=== PATIENT | female | born 1960 | race Caucasian/White ===

== ENCOUNTER 2016-11-13 21:17 | Inpatient (IN) | payer MEDICAID, OTHER ==
[2016-11-13] MEDS ORDERED: ONDANSETRON 4 MG/2 ML VIAL IVP ONE ×2 (21:38→21:49)
--- NOTE | 2016-11-13 21:42 | EDPHY ---
H & P Stated Complaint: ABD PAIN HX OF PANCRETITIS, JUST DROVE FROM [place] HPI/ROS: HPI CHIEF COMPLAINT: Abdominal pain, nausea, vomiting HISTORY OF PRESENT ILLNESS: This patient is a very pleasant 56-year-old female , she is visiting her parents and [place] and she is from [place], she states around 5:00 p.m. she developed acute onset of epigastric abdominal pain burning in sensation, with associated nausea vomiting. She denies chest pain. She has had multiple episodes of nonbilious nonbloody vomiting, diarrhea, she is tells me this feels exactly like her previous episode of pancreatitis which was medication induced. She denies pleuritic pain. She does additionally tells me that she feels short of breath. She has asthma and is at altitude and would like also a breathing treatment. She denies fever, pleuritic pain. Past Medical History: Pancreatitis, chronic pain, chronic back pain, chronic knee pain, asthma Past Surgical History: Cholecystectomy Social History: Denies daily use of drugs alcohol tobacco products resides in [place], visiting her parents here in [facility] Family History: Noncontributory ROS REVIEW OF SYSTEMS: A comprehensive 10 point review of systems is otherwise negative aside from elements mentioned in the history of present illness. Exam Constitutional appears well nontoxic triage nursing summary reviewed, vital signs reviewed, awake/alert. Eyes normal conjunctivae and sclera, EOMI, PERRLA. HENT normal inspection, atraumatic, moist mucus membranes, no epistaxis, neck supple/ no meningismus, no raccoon eyes. Respiratory clear to auscultation bilaterally, normal breath sounds, no respiratory distress, no wheezing. Cardiovascular rate normal, regular rhythm, no murmur, no edema, distal pulses normal. Gastrointestinal soft, tender palpation epigastric region , no rebound, no guarding, normal bowel sounds, no distension, no pulsatile mass. Genitourinary no CVA tenderness. Musculoskeletal no midline vertebral tenderness, full range of motion, no calf swelling, no tenderness of extremities, no meningismus, good pulses, neurovascularly intact. Skin pink, warm, & dry, no rash, skin atraumatic. Neurologic awake, alert and oriented x 3, AAOx3, moves all 4 extremities equally, motor intact, sensory intact, CN II-XII intact, normal cerebellar, normal vision, normal speech. Psychiatric normal mood/affect. Heme/Lymph/Immune no lymphadenopathy. Differential diagnosis includes but is not limited to and in no particular order : Bowel obstruction, appendicitis, gallbladder disease, diverticulitis, colitis , enteritis, perforated viscus, gastritis, GERD, esophagitis, urinary tract infection, pyelonephritis, kidney stones Medical Decision Making: IV establishment, IV fluid bolus normal saline 1 L, IV Zofran for nausea medicine IV Dilaudid for pain control check abdominal blood work including lipase, CT abdomen pelvis with IV contrast to help delineate her acute abdominal pain, check EKG troponin. DuoNeb breathing treatment. Re-evaluation: EKG interpretation by me on record in [email or web address] system. Impression time of EKG 2217, this is sinus rhythm rate of 91 there is a nonspecific intraventricular conduction delay. Otherwise unremarkable EKG I do not appreciate acute ischemia. No ST elevation. There is no old EKG to compare this to. 2246: CT scan of the abdominal with IV contrast. The results of the study are negative for acute inflammatory disease. The study was read by Dr. Barakat. I viewed the images myself on the PACS system. 1214AM: Re-evaluation at this time patient feels much better. She is not vomiting. Abdomen re-examination at this time soft nontender no guarding or peritoneal signs. Blood work has been reviewed CT reviewed. She is receiving 1 more L fluid here. She is requesting be discharged. She does have strict return precautions she understands return if she has worsening abdominal pain fever vomiting. Explained I will have a great explanation for abdominal pain could be gastritis versus ulcer. Certainly no evidence of pancreatitis. EKG interpretation by me on record in [email or web address] system. Impression time of EKG 0011: This is sinus rhythm rate of 98, nonspecific intraventricular conduction delay present again. Otherwise no acute ischemic change appreciated. No ST elevation. No significant ST depression. No significant T- wave abnormality. No prolonged intervals. Similar to previous EKG. 1242AM: Patient's repeat troponin is positive at 0.641. On re-evaluation at this time she does not have chest pain or shortness of breath she does have some mild epigastric pain is reproducible on exam. I will repeat her EKG and obtain a chest x-ray. She will be given full-dose aspirin and nitroglycerin to see if this improves her epigastric discomfort. There is no acute ischemia on her EKG but will repeat. She will need to be admitted the hospital for positive troponin. 0115AM: EKG interpretation by me on record in [email or web address] system. Impression time of EKG 12:49 a.m., sinus rhythm rate of 93 again there is a nonspecific intraventricular conduction delay however I do not appreciate acute ischemia on this EKG. ED x-ray chest one view: Slightly rotated otherwise unremarkable chest x-ray. Image interpreted by myself. 0116: Full-dose aspirin given. Nitroglycerin given. Did not improve epigastric discomfort. Repeat dose of Dilaudid given. She is resting comfortably at this time. No chest pain or shortness of breath. 0123AM: I spoke with Dr. tolliver who agrees to admit the patient. Patient be admitted to PCU for court recording monitor given her positive troponin. Again she has no chest pain or significant shortness of breath. She is resting comfortably. Will cycle enzymes. Plus or minus stress test. This time she is hemodynamically stable no acute distress safe for admission to PCU. 0249AM: Patient resting comfortably. Repeat troponin has doubled 1.2. Indicating most likely non STEMI. She will be started on anticoagulation. Morphine for pain control. She is already receive full-dose aspirin. Nitroglycerin did not help with her pain gave her headache. She is pain-free at this time. Resting comfortably. Hemodynamically stable she will be transferred from the ER to PCU. Dr. Jaren thomas. Source: Patient - Personal History Current Tetanus/Diphtheria Vaccine: Yes Current Tetanus Diphtheria and Acellular Pertussis (TDAP): Yes - Medical/Surgical History Hx Asthma: Yes Hx Chronic Respiratory Disease: No Hx Diabetes: No Hx Cardiac Disease: No Hx Renal Disease: No Hx Cirrhosis: No Hx Alcoholism: No Hx HIV/AIDS: No Hx Splenectomy or Spleen Trauma: No Other PMH: PANCRETITIS, DEPRESSION, FIBROMYALSIA, ASTHMA, MIGRAINES - Social History Smoking Status: Never smoked Constitutional: Initial Vital Signs Temperature (C) 36.9 C 11/13/16 21:17 Heart Rate 114 H 11/13/16 21:17 Respiratory Rate 20 11/13/16 21:17 Blood Pressure 195/136 H 11/13/16 21:17 O2 Sat (%) 98 11/13/16 21:17 O2 Delivery Mode Nasal Cannula O2 (L/minute) 2 Allergies/Adverse Reactions: Penicillins Allergy (Verified 11/14/16 09:53) Rash/Throat swelling Home Medications: Medication Instructions Recorded buPROPion SR [Wellbutrin 150mg SR 150 mg PO BID 11/13/16 (*)] Albuterol [Proventil Inhaler HFA 1 - 2 puffs IH DAILY PRN 11/14/16 (*)] Citalopram Hydrobromide [Celexa] 40 mg PO DAILY 11/14/16 Esomeprazole Mag Trihydrate 40 mg PO DAILY 11/14/16 [Nexium] Rotigotine [Neupro] 1 each TD DAILY18 11/14/16 Sumatriptan Succinate 6 mg SQ DAILY 11/14/16 rOPINIRole HCL [Requip 2mg (*)] 2 mg PO BID@,11/14/16 traMADol [Ultram 50 mg (*)] 50 mg PO Q8HRS PRN 11/14/16 valACYclovir [Valtrex (*)] 500 mg PO HS 11/14/16 Medical Decision Making - Data Points Laboratory Results: Laboratory Results 11/13/16 21:34 11/13/16 21:34 Medications Given: Discontinued Medications Al Hydroxide/Mg Hydroxide (Maalox Susp) 30 ml PO ONCE ONE Stop: 11/14/16 15:19 Last Admin: 11/14/16 16:15 Dose: 30 ml Albuterol/Ipratropium (Duoneb) 3 ml IH EDNOW ONE Stop: 11/13/16 21:51 Last Admin: 11/13/16 21:59 Dose: 3 ml Aspirin (Aspirin) 324 mg PO EDNOW ONE Stop: 11/14/16 00:42 Last Admin: 11/14/16 00:52 Dose: 324 mg Aspirin Buffered (Aspirin Ec) 325 mg PO ONCALL ONE Stop: 11/14/16 12:54 Last Admin: 11/14/16 13:00 Dose: Not Given Clopidogrel Bisulfate (Plavix) 300 mg PO ONCE ONE Stop: 11/14/16 03:00 Last Admin: 11/14/16 04:08 Dose: 300 mg Diazepam (Valium) 5 mg PO ONCALL ONE Stop: 11/14/16 12:54 Last Admin: 11/14/16 13:00 Dose: Not Given Diphenhydramine HCl (Benadryl) 25 mg PO ONCALL ONE Stop: 11/14/16 12:54 Last Admin: 11/14/16 13:01 Dose: Not Given Enoxaparin Sodium (Lovenox) 70 mg SC ONCE ONE Stop: 11/14/16 03:01 Last Admin: 11/14/16 04:10 Dose: 70 mg Hydromorphone HCl (Dilaudid) 1 mg IVP EDNOW ONE Stop: 11/13/16 21:50 Last Admin: 11/13/16 21:58 Dose: 1 mg Hydromorphone HCl (Dilaudid) 0.5 mg IVP EDNOW ONE Stop: 11/14/16 00:00 Last Admin: 11/14/16 00:04 Dose: 0.5 mg Hydromorphone HCl (Dilaudid) 0.5 mg IVP EDNOW ONE Stop: 11/14/16 01:12 Last Admin: 11/14/16 01:15 Dose: 0.5 mg Hydromorphone HCl (Dilaudid) 0.2 - 1 mg IVP Q2 PRN PRN Reason: Pain, Severe Unable to Take PO Stop: 11/24/16 02:50 Last Admin: 11/16/16 03:59 Dose: 1 mg Hyoscyamine Sulfate (Levsin, Hyomax-Sl) 0.25 mg PO ONCE ONE Stop: 11/14/16 15:19 Last Admin: 11/14/16 16:15 Dose: 0.25 mg Sodium Chloride (Ns) 1,000 mls @ 0 mls/hr IV EDNOW ONE; Wide Open PRN Reason: Protocol Stop: 11/13/16 21:50 Last Admin: 11/13/16 21:56 Dose: 1,000 mls Sodium Chloride (Ns) 1,000 mls @ 0 mls/hr IV ONCE ONE PRN Reason: Wide Open Stop: 11/14/16 00:00 Last Admin: 11/14/16 00:03 Dose: 1,000 mls Potassium Chloride 40 meq/ (Sodium Chloride) 1,000 mls @ 100 mls/hr IV CONT POPEYE Stop: 05/13/17 02:59 Last Admin: 11/14/16 04:15 Dose: 1,000 mls Magnesium Sulfate/Dextrose (Magnesium Sulf 1 Gm (Premix)) 100 mls @ 100 mls/hr IV ONCE ONE Stop: 11/14/16 04:02 Last Admin: 11/14/16 04:10 Dose: 100 mls Pantoprazole Sodium 40 mg/ (Sodium Chloride) 100 mls @ 200 mls/hr IV BID [facility] Stop: 05/13/17 15:19 Last Admin: 11/14/16 16:22 Dose: 100 mls Pantoprazole Sodium 40 mg/ (Sodium Chloride) 100 mls @ 200 mls/hr IV BID [facility] Stop: 05/13/17 16:14 Last Admin: 11/16/16 08:15 Dose: 100 mls Lidocaine (Lidocaine 2% Viscous) 15 ml PO ONCE ONE Stop: 11/14/16 15:19 Last Admin: 11/14/16 16:15 Dose: 15 ml Metoprolol Tartrate (Lopressor) 12.5 mg PO ONCE ONE Stop: 11/14/16 03:00 Last Admin: 11/14/16 04:09 Dose: 12.5 mg Nitroglycerin (Nitrostat) 0.4 mg SL EDNOW ONE Stop: 11/14/16 00:42 Last Admin: 11/14/16 00:52 Dose: 0.4 mg Ondansetron HCl (Zofran) 4 mg IVP EDNOW ONE Stop: 11/13/16 21:39 Last Admin: 11/13/16 21:40 Dose: 4 mg Ondansetron HCl (Zofran) 4 mg IVP EDNOW ONE Stop: 11/13/16 21:50 Last Admin: 11/13/16 22:23 Dose: Not Given Oxycodone HCl (Oxycodone Ir) 5 mg PO Q4HRS PRN PRN Reason: Pain, Severe Able to Take PO Stop: 11/24/16 15:21 Last Admin: 11/16/16 08:22 Dose: 5 mg Pantoprazole Sodium (Protonix) 40 mg PO DAILY [facility] Stop: 05/13/17 10:29 Last Admin: 11/14/16 15:50 Dose: Not Given Ropinirole HCl (Requip) 2 mg PO EDNOW ONE Stop: 11/14/16 01:24 Last Admin: 11/14/16 01:37 Dose: 2 mg Departure - Departure Disposition: [facility] Inpatient Acute Clinical Impression: Elevated troponin Abdominal pain Qualifiers: Abdominal location: epigastric Qualified Code(s): R10.13 - Epigastric pain Condition: Good
[2016-11-13] MEDS ORDERED: HYDROmorphONE/DILAUDID 1 MG/ML SYR IVP ONE ×2 (21:49→23:59)
[2016-11-13] MEDS ORDERED: NS 1,000 ML IV ONE ×2 (21:49→23:59)
[2016-11-13] MEDS ORDERED: IPRATROPIUM/ALBUTEROL 3 ML DEYVIAL IH ONE (21:50)
[2016-11-13 21:56] LABS: % IMMATURE GRANULYOCYTES 0.5 % (0.0-1.1); ABSOLUTE IMMATURE GRANULOCYTES 0.08 10^3/uL (0.00-0.10); ADD DIFF? NO; ADD MORPH? NO; ADD SCAN? NO; ATYPICAL LYMPHOCYTE FLAG 0 (0-99); FRAGMENT RBC FLAG 0 (0-99); HEMATOCRIT 39.6 % (38.0-47.0); HEMOGLOBIN 12.9 g/dL (12.6-16.3); LEFT SHIFT FLG 0 (0-99); LIPEMIA HEMOLYSIS FLAG 80 (0-99); MEAN CELL HEMOGLOBIN 31.2 pg (27.9-34.1); MEAN CELL HEMOGLOBIN CONCENTR. 32.6 g/dL (32.4-36.7); MEAN CELL VOLUME 95.7 fL (81.5-99.8); MEAN PLATELET VOLUME 10.3 fL (8.7-11.7); PLATELET CLUMPS FLAG 0 (0-99); PLATELET COUNT 325 10^3/uL (150-400); RED BLOOD CELL COUNT 4.14 10^6/uL (4.18-5.33); RED CELL DISTRIBUTION WIDTH 13.2 % (11.5-15.2)
[2016-11-13] MEDS ORDERED: IOPAMIDOL (ISOVUE-300) 100 ML BTL ONE (22:00)
[2016-11-13 22:02] LABS: ALANINE AMINOTRANSFERASE 30 IU/L (9-52); ALBUMIN 4.7 g/dL (3.5-5.0); ALKALINE PHOSPHATASE 75 IU/L (38-126); ANION GAP 18 mEq/L (8-16); ASPARTATE AMINOTRANSFERASE 30 IU/L (14-46); BILIRUBIN,TOTAL 0.6 mg/dL (0.1-1.4); BILIRUBIN-CONJUGATED 0.3 mg/dL (0.0-0.5); BILIRUBIN-UNCONJUGATED 0.3 mg/dL (0.0-1.1); CALCIUM 10.6 mg/dL (8.5-10.4); CARBON DIOXIDE 18 mEq/l (22-31); CHLORIDE 108 mEq/L (97-110); CREATININE 1.1 mg/dL (0.6-1.0); GLOMERULAR FILTRATION RATE 52; GLUCOSE 183 mg/dL (70-100); POTASSIUM 3.4 mEq/L (3.5-5.2); SODIUM 144 mEq/L (134-144); TOTAL PROTEIN 7.7 g/dL (6.3-8.2)
[2016-11-13 22:05] LABS: INR 0.92 (0.83-1.16); PROTIME(PATIENT) 12.3 SEC (12.0-15.0)
[2016-11-13 22:06] LABS: APTT 23.2 SEC (23.0-38.0)
--- NOTE | 2016-11-13 22:19 | CPEKG ---
Heart Rate: 91 RR Interval: 659 P-R Interval: 160 QRSD Interval: 112 QT Interval: 436 QTC Interval: 537 P [place]: 66 QRS [place]: -29 T Wave [place]: 71 EKG Severity - ABNORMAL ECG - EKG Impression: SINUS RHYTHM EKG Impression: PROBABLE LEFT ATRIAL ABNORMALITY EKG Impression: NONSPECIFIC INTRAVENTRICULAR CONDUCTION DELAY Electronically Signed By: Bigg Verma 15-Nov-2016 14:30:33
[2016-11-13 22:31] LABS: TROPONIN I < 0.012 ng/mL (0-0.034)
--- NOTE | 2016-11-14 00:13 | CPEKG ---
Heart Rate: 98 RR Interval: 612 P-R Interval: 152 QRSD Interval: 114 QT Interval: 428 QTC Interval: 547 P [place]: 70 QRS [place]: -41 T Wave [place]: 58 EKG Severity - ABNORMAL ECG - EKG Impression: SINUS RHYTHM EKG Impression: PROBABLE LEFT ATRIAL ABNORMALITY EKG Impression: NONSPECIFIC IVCD WITH LAD Electronically Signed By: Dario Lazo 16-Nov-2016 15:01:12
[2016-11-14 00:20] LABS: COLOR PALE YELLOW; LEUKOCYTE ESTERASE,URINE NEGATIVE (NEGATIVE); NITRITE,URINE NEGATIVE (NEGATIVE)
[2016-11-14 00:34] LABS: TROPONIN I 0.641 ng/mL (0-0.034)
[2016-11-14] MEDS ORDERED: NITROGLYCERIN 0.4 MG BTL SL ONE (00:41)
[2016-11-14] MEDS ORDERED: ASPIRIN 81 MG CHEWABLE TAB PO ONE (00:41)
--- NOTE | 2016-11-14 00:52 | CPEKG ---
Heart Rate: 93 RR Interval: 645 P-R Interval: 168 QRSD Interval: 100 QT Interval: 436 QTC Interval: 543 P [place]: 56 QRS [place]: -34 T Wave [place]: 60 EKG Severity - ABNORMAL ECG - EKG Impression: SINUS RHYTHM EKG Impression: LEFT AXIS DEVIATION EKG Impression: PROLONGED QT INTERVAL Electronically Signed By: Dario Lazo 16-Nov-2016 15:00:49
[2016-11-14] MEDS ORDERED: HYDROmorphONE/DILAUDID 1 MG/ML SYR IVP ONE (01:11)
[2016-11-14] MEDS ORDERED: HYDROmorphONE/DILAUDID 1 MG/ML SYR ONE (01:13)
[2016-11-14] MEDS ORDERED: ONDANSETRON DISINTEGRATING 4 MG TAB PO PRN (02:51)
[2016-11-14] MEDS ORDERED: PROMETHAZINE HCL 25 MG/ML INJ IVP PRN (02:51)
[2016-11-14] MEDS ORDERED: PROMETHAZINE HCL 25 MG TAB PO PRN (02:51)
[2016-11-14] MEDS ORDERED: ACETAMINOPHEN 325 MG TAB PO PRN (02:51)
[2016-11-14] MEDS ORDERED: ONDANSETRON 4 MG/2 ML VIAL IVP PRN (02:51)
[2016-11-14] MEDS ORDERED: METOPROLOL TARTRATE 25 MG TAB PO ONE (02:59)
[2016-11-14] MEDS ORDERED: CLOPIDOGREL BISULFATE 75 MG TAB PO ONE (02:59)
[2016-11-14] MEDS ORDERED: ENOXAPARIN 80 MG/0.8 ML SYR SC ONE (03:00)
[2016-11-14] MEDS ORDERED: POTASSIUM Cl (KCl) 40 MEQ in NS 1,000 ML IV SCH (03:00)
[2016-11-14] MEDS ORDERED: MAGNESIUM SULF 1 GM/DEXTROSE 100 ML IV ONE (03:03)
--- NOTE | 2016-11-14 03:08 | PDGENHP ---
History and Physical - Chief Complaint Acute abdominal pain - History of Present Illness 56 yo F p/w acute abdominal pain located in the mid-epigastric area, associated with nausea, vomiting, diaphoresis, shortness of breath and about 6 episodes of watery, non-bloody diarrhea. Onset was around 5 p.m., occurring at rest while she was starting to eat dinner. No other family members experienced similar symptoms. She felt like the character and location of the abdominal pain were similar to that of a previous bout of pancreatitis, and she sought medical attention. She arrived in [place] today, after a week-long road trip from [place]. She has eaten most meals on the road for the past week, but neither she nor her partner have had GI symptoms during that interval. She reports that for the past year, her exercise tolerance has been declining, and she becomes particularly fatigued after even minimal exertion (approx 2 blocks). She has attributed this to her fibromyalgia, which manifests as diffuse polyarthralgias. She is not currently taking any NSAIDs or opiates for that issue. History Information - Allergies/Home Medication List Allergies/Adverse Reactions: penicillin G Allergy (Verified 11/13/16 21:22) Home Medications: Citalopram Hydrobromide [Celexa] 40 mg PO 11/13/16 [Last Taken Unknown] buPROPion SR [Wellbutrin 150mg SR (*)] 11/13/16 [Last Taken Unknown] rOPINIRole HCL [Ropinirole ER] 2 mg PO 11/13/16 [Last Taken Unknown] I have personally reviewed and updated: family history, medical history, social history, surgical history - Past Medical History asthma (with nearly daily use of rescue inhaler, inhaled steroids, never been intubated), fibromyalgia (and restless legs syndrome) Additional medical history: Rx-induced pancreatitis approx 2 years ago - Surgical History Reports: cholecystectomy Additional surgical history: numerous orthopedic surgeries on knees, rotator cuffs, ankle - Family History Additional family history: no premature CAD or VTE - Social History Smoking Status: Never smoked Alcohol Use: Occasionally Drug Use: Marijuana Additional social history: lives in [place], week-long roadtrip to [place] Review of Systems ROS: 10pt was reviewed & negative except for what was stated in HPI & below Constitutional: Reports: diaphoresis Respiratory: Reports: shortness of breath Gastrointestinal: Reports: vomitting, abdominal pain, diarrhea, nausea Physical Exam Temp Pulse Resp BP Pulse Ox 36.8 C 81 20 111/89 H 98 11/14/16 02:54 11/14/16 02:54 11/14/16 02:54 11/14/16 02:54 11/14/16 02:54 Constitutional: no apparent distress, appears nourished, uncomfortable (2/10 pain), No chronically ill appearing Eyes: PERRL, anicteric sclera, EOMI Ears, Nose, Mouth, Throat: moist mucous membranes, hearing normal, ears appear normal, no oral mucosal ulcers Cardiovascular: tachycardia, No systolic murmur, No irregularly irregular, No edema Respiratory: no respiratory distress, no rales or rhonchi, clear to auscultation Gastrointestinal: no palpable masses, tenderness (mid-epigastric and left-upper quadrant), other (hyperactive bowel sounds), No guarding Skin: other (many freckles, otherwise no vesicular lesions) Musculoskeletal: other (full ROM bilat shoulders w/o pain, minimal sub-AC tenderness L shoulder, no pectoralis tenderness) Neurologic: AAOx3, No facial droop Psychiatric: interacting appropriately, not anxious, not encephalopathic, thought process linear Lab Data & Imaging Review 11/13/16 21:34 11/13/16 21:34 WBC 15.38 10^3/uL (3.80-9.50) H 11/13/16 21:34 RBC 4.14 10^6/uL (4.18-5.33) L 11/13/16 21:34 Hgb 12.9 g/dL (12.6-16.3) 11/13/16 21:34 Hct 39.6 % (38.0-47.0) 11/13/16 21:34 MCV 95.7 fL (81.5-99.8) 11/13/16 21:34 MCH 31.2 pg (27.9-34.1) 11/13/16 21:34 MCHC 32.6 g/dL (32.4-36.7) 11/13/16 21:34 RDW 13.2 % (11.5-15.2) 11/13/16 21:34 Plt Count 325 10^3/uL (150-400) 11/13/16 21:34 MPV 10.3 fL (8.7-11.7) 11/13/16 21:34 Neut % (Auto) 80.4 % (39.3-74.2) H 11/13/16 21:34 Lymph % (Auto) 13.3 % (15.0-45.0) L 11/13/16 21:34 Mckenzie % (Auto) 4.6 % (4.5-13.0) 11/13/16 21:34 Eos % (Auto) 0.4 % (0.6-7.6) L 11/13/16 21:34 Baso % (Auto) 0.8 % (0.3-1.7) 11/13/16 21:34 Nucleat RBC Rel Count 0.0 % (0.0-0.2) 11/13/16 21:34 Absolute Neuts (auto) 12.36 10^3/uL (1.70-6.50) H 11/13/16 21:34 Absolute Lymphs (auto) 2.05 10^3/uL (1.00-3.00) 11/13/16 21:34 Absolute Monos (auto) 0.71 10^3/uL (0.30-0.80) 11/13/16 21:34 Absolute Eos (auto) 0.06 10^3/uL (0.03-0.40) 11/13/16 21:34 Absolute Basos (auto) 0.12 10^3/uL (0.02-0.10) H 11/13/16 21:34 Absolute Nucleated RBC 0.00 10^3/uL (0-0.01) 11/13/16 21:34 Immature Gran % 0.5 % (0.0-1.1) 11/13/16 21:34 Immature Gran # 0.08 10^3/uL (0.00-0.10) 11/13/16 21:34 PT 12.3 SEC (12.0-15.0) 11/13/16 21:34 INR 0.92 (0.83-1.16) 11/13/16 21:34 APTT 23.2 SEC (23.0-38.0) 11/13/16 21:34 VBG Lactic Acid 0.9 mmol/L (0.7-2.1) 11/13/16 23:56 Sodium 144 mEq/L (134-144) 11/13/16 21:34 Potassium 3.4 mEq/L (3.5-5.2) L 11/13/16 21:34 Chloride 108 mEq/L (97-110) 11/13/16 21:34 Carbon Dioxide 18 mEq/l (22-31) L 11/13/16 21:34 Anion Gap 18 mEq/L (8-16) H 11/13/16 21:34 BUN 17 mg/dL (7-23) 11/13/16 21:34 Creatinine 1.1 mg/dL (0.6-1.0) H 11/13/16 21:34 Estimated GFR 52 11/13/16 21:34 Glucose 183 mg/dL (70-100) H 11/13/16 21:34 Calcium 10.6 mg/dL (8.5-10.4) H 11/13/16 21:34 Total Bilirubin 0.6 mg/dL (0.1-1.4) 11/13/16 21:34 Conjugated Bilirubin 0.3 mg/dL (0.0-0.5) 11/13/16 21:34 Unconjugated Bilirubin 0.3 mg/dL (0.0-1.1) 11/13/16 21:34 AST 30 IU/L (14-46) 11/13/16 21:34 ALT 30 IU/L (9-52) 11/13/16 21:34 Alkaline Phosphatase 75 IU/L (38-126) 11/13/16 21:34 Troponin I 1.230 ng/mL (0-0.034) H 11/14/16 01:25 Total Protein 7.7 g/dL (6.3-8.2) 11/13/16 21:34 Albumin 4.7 g/dL (3.5-5.0) 11/13/16 21:34 Lipase 133.0 IU/L (23-300) 11/13/16 21:34 Urine Color PALE YELLOW 11/14/16 00:00 Urine Appearance CLEAR 11/14/16 00:00 Urine pH 6.0 (5.0-7.5) 11/14/16 00:00 Ur Specific Hominy > 1.035 (1.002-1.030) H 11/14/16 00:00 Urine Protein NEGATIVE (NEGATIVE) 11/14/16 00:00 Urine Ketones 2+ (NEGATIVE) H 11/14/16 00:00 Urine Blood NEGATIVE (NEGATIVE) 11/14/16 00:00 Urine Nitrate NEGATIVE (NEGATIVE) 11/14/16 00:00 Urine Bilirubin NEGATIVE (NEGATIVE) 11/14/16 00:00 Urine Urobilinogen NEGATIVE EU (0.2-1.0) 11/14/16 00:00 Ur Leukocyte Esterase NEGATIVE (NEGATIVE) 11/14/16 00:00 Urine Glucose NEGATIVE (NEGATIVE) 11/14/16 00:00 Visualized and Interpreted Chest x-ray results: Yes Chest X-Ray results: no infiltrate (somewhat hyperinflated) Visualized and Interpreted EKG results: Yes EKG Interpretation: Positive for: other (NSR, IVCD, Q inferior leads) Assessment & Plan Assessment: 56 yo F p/w abdominal pain, nausea, and vomiting w/ LUCRECIA, hyperglycemia, metabolic acidosis, and suspected NSTEMI Plan: 1. Suspected NSTEMI. Acute, new problem, further w/u indicated. Evidenced by abd pain/N/V + trop 1.2 + leukocytosis/elevated BP/hyperglycemia + impaired exercise tolerance, now with symptoms occurring at rest - EKG w/o STEMI - pain responded well to dilaudid, cont PRN - SLN w/o significant effect, tx symptomatically w/ dilaudid/anti-emetic - d/w Dr. Sterling, we both agree that this is most likely as well as highest risk possibility, and will proceed w/ anticoagulation (lovenox) + plavix load + ASA - give metop tart 12.5mg PO now - check lipid panel, A1c - get dimer to r/o PE given roadtrip - remain on tele, get next trop 6 a.m. - optimize K/Mg w/ IVF - will contact Cardiology and discuss cath, will keep NPO 2. Metabolic Acidosis. Acute, secondary to upper GI losses, give NS and monitor 3. LUCRECIA. 2/2 hypovolemia, give volume and reassess 4. Hyperglycemia. Likely stress response, no hx DM, will check A1c, hold on ISS while NPO Diet. NPO w/ IVF PPx. Low risk, on lovenox for above Code. Full Dispo. ADD uncertain, pending further w/u for suspected NSTEMI w/ cath and then likely post-intervention tele monitoring for arrhythmias
[2016-11-14] MEDS: HYDROmorphONE/DILAUDID 1 MG/ML SYR IVP PRN ×5 (03:41→21:33)
[2016-11-14 04:49] LABS: % IMMATURE GRANULYOCYTES 0.7 % (0.0-1.1); ABSOLUTE IMMATURE GRANULOCYTES 0.07 10^3/uL (0.00-0.10); ADD DIFF? NO; ADD MORPH? NO; ADD SCAN? NO; ATYPICAL LYMPHOCYTE FLAG 0 (0-99); FRAGMENT RBC FLAG 0 (0-99); HEMATOCRIT 33.9 % (38.0-47.0); LEFT SHIFT FLG 0 (0-99); LIPEMIA HEMOLYSIS FLAG 80 (0-99); MEAN CELL HEMOGLOBIN 31.7 pg (27.9-34.1); MEAN CELL HEMOGLOBIN CONCENTR. 32.4 g/dL (32.4-36.7); MEAN CELL VOLUME 97.7 fL (81.5-99.8); MEAN PLATELET VOLUME 10.4 fL (8.7-11.7); PLATELET CLUMPS FLAG 0 (0-99); PLATELET COUNT 247 10^3/uL (150-400); RED BLOOD CELL COUNT 3.47 10^6/uL (4.18-5.33); RED CELL DISTRIBUTION WIDTH 13.5 % (11.5-15.2)
[2016-11-14 05:07] LABS: ANION GAP 12 mEq/L (8-16); CALCIUM 8.9 mg/dL (8.5-10.4); CARBON DIOXIDE 19 mEq/l (22-31); CHLORIDE 111 mEq/L (97-110); CHOLESTEROL 161 mg/dL (140-220); CREATININE 0.9 mg/dL (0.6-1.0); GLOMERULAR FILTRATION RATE > 60; GLUCOSE 105 mg/dL (70-100); HIGH DENSITY LIPOPROTEIN 62 mg/dL (40-85); LOW DENSITY LIPOPROTEIN 87 mg/dL (80-100); MAGNESIUM 1.5 mg/dL (1.6-2.3); NON-HIGH DENSITY LIPOPROTEIN 99 mg/dL (90-129); POTASSIUM 4.1 mEq/L (3.5-5.2); SODIUM 142 mEq/L (134-144); TRIGLYCERIDE 60 mg/dL (35-135); VERY LOW DENSITY LIPOPROTEINS 12 mg/dL (8-25)
[2016-11-14] MEDS: diphenhydrAMINE 25 MG CAP PO PRN ×4 (05:11→21:33)
[2016-11-14] MEDS ORDERED: ALBUTEROL 60 PUFFS/8 GM MDI IH PRN (10:08)
[2016-11-14] MEDS ORDERED: traMADol 50 MG TAB PO PRN (10:08)
[2016-11-14] MEDS ORDERED: ALBUTEROL 200 PUFFS/18 GM MDI IH PRN (10:27)
--- NOTE | 2016-11-14 10:28 | HOSPPROG ---
Hospitalist Progress Note Assessment/Plan: # NSTEMI - s/p lovenox + plavix load - anticipate cath today # abd pain - referred pain from NSTEMI or other? CT abd negative - follow closely # fibromyalgia - cont home meds # asthma - inhalers # RLS - home meds 35 minutes from 9:50-10:25am spent in direct face to face patient care Subjective: ongoing abd pain, epigastric Objective: Vital Signs Temp Pulse Resp BP Pulse Ox 36.6 C 66 20 86/58 L 95 11/14/16 07:44 11/14/16 07:44 11/14/16 07:44 11/14/16 07:44 11/14/16 07:44 Laboratory Results 11/14/16 04:21 11/14/16 04:21 11/13/16 11/14/16 11/15/16 05:59 05:59 05:59 Intake Total 2829 Output Total 200 Balance 2629 PT 12.3 SEC (12.0-15.0) 11/13/16 21:34 INR 0.92 (0.83-1.16) 11/13/16 21:34 - Physical Exam Gastrointestinal: other (TTP epigastrum; soft, no guarding/rebound) ICD10 Worksheet Patient Problems: Problems Problem Status Onset Abdominal pain Acute Elevated troponin Acute
[2016-11-14] MEDS ORDERED: SUMAtriptan 6 MG/0.5 ML VIAL SC PRN (10:30)
[2016-11-14] MEDS ORDERED: PANTOPRAZOLE SODIUM 40 MG TAB PO SCH (10:30)
[2016-11-14 10:41] LABS: HEMOGLOBIN A1C 5.5 % (4.0-6.0)
[2016-11-14] MEDS ORDERED: fentaNYL 100 MCG/2 ML INJ ONE (11:59)
[2016-11-14] MEDS ORDERED: LIDOCAINE 1% 300 MG/30 ML SDV ONE (11:59)
[2016-11-14] MEDS ORDERED: MIDAZOLAM 2 MG/2 ML VIAL ONE ×2 (11:59→12:00)
[2016-11-14] MEDS ORDERED: VERAPAMIL 5 MG/2 ML VIAL ONE (12:00)
[2016-11-14] MEDS ORDERED: HEPARIN 10,000 UNIT/10 ML MDV ONE (12:00)
[2016-11-14] MEDS ORDERED: IOPAMIDOL (ISOVUE-370) 150 ML BTL IV ONE (12:02)
[2016-11-14 12:17] LABS: COLOR YELLOW; LEUKOCYTE ESTERASE,URINE NEGATIVE (NEGATIVE); NITRITE,URINE NEGATIVE (NEGATIVE)
[2016-11-14] MEDS ORDERED: diphenhydrAMINE 25 MG CAP PO ONE (12:53)
[2016-11-14] MEDS ORDERED: ASPIRIN EC 325 MG TAB PO ONE (12:53)
[2016-11-14] MEDS ORDERED: DIAZEPAM 5 MG TAB PO ONE (12:53)
[2016-11-14] MEDS ORDERED: BIVALIRUDIN 250 MG/5 ML VIAL IV ONE (14:11)
[2016-11-14] MEDS ORDERED: ATROPINE SULFATE 1 MG/10 ML SYR IVP PRN (14:30)
--- NOTE | 2016-11-14 14:42 | PDDXCAT ---
Diagnostic Cath Note - . Date: 11/14/16 Telephone Advice Nurse: Timothy Indication: other (Chest pain and elevated troponin.) - Procedure Access: right groin - Materials Left Heart Cath size: 6F Left Heart Cath materials: standard multipack (JL4, JR4, pigtail) - Findings-Left Heart Catheterization LM: Angiographically normal. LAD: Very tortuous mid-LAD; otherwise angiographically normal. LCX: Dominant; angiographically normal. RCA: Non-dominant; angiographically normal. EDP: 26 mmHg LVEF: Approximately 50%. Wall motion: Hypercontractile proximal and mid-LV wall segments. Dyskinesis of the apex. Complications: None Estimated blood loss: <50ml Closure method: Angioseal Assessment: 1) Takotsubo cardiomyopathy. 2) Normal coronary arteries. Plan: Echocardiogram ordered to serve as baseline for future comparison. Will start low-dose PAM inhibitor. Will avoid beta mirta therapy for now given her asthma history. Patient Problems: Problems Problem Status Onset Abdominal pain Acute Elevated troponin Acute
[2016-11-14] MEDS ORDERED: LIDOCAINE 2% VISCOUS 15 ML UDCUP PO ONE (15:18)
[2016-11-14] MEDS ORDERED: MAG HYDROX/AL HYDROX/SIMETH 30 ML UDCUP PO ONE (15:18)
[2016-11-14] MEDS ORDERED: HYOSCYAMINE SULFATE 0.125 MG TAB PO ONE (15:18)
[2016-11-14] MEDS ORDERED: PANTOPRAZOLE SODIUM 40 MG in NS 100 ML IV SCH ×2 (15:20→21:00)
[2016-11-14] MEDS: oxyCODONE IR 5 MG TAB PO PRN (16:14)
[2016-11-14] MEDS: CITALOPRAM 20 MG TAB PO SCH (16:15)
[2016-11-14] MEDS ORDERED: NS 1,000 ML IV SCH (16:15)
[2016-11-14] MEDS: PANTOPRAZOLE SODIUM 40 MG in NS 100 ML IV SCH ×2 (16:30→20:52)
[2016-11-14] MEDS ORDERED: CARVEDILOL 3.125 MG TAB PO SCH (18:00)
[2016-11-14] MEDS: ROTIGOTINE 2 MG TD SCH (18:05)
[2016-11-14] MEDS: valACYclovir 500 MG TAB PO SCH (20:52)
[2016-11-14] MEDS: buPROPion SR 150 MG TAB PO SCH (20:52)
[2016-11-15] MEDS: HYDROmorphONE/DILAUDID 1 MG/ML SYR IVP PRN ×4 (02:14→21:55)
[2016-11-15 04:33] LABS: % IMMATURE GRANULYOCYTES 0.3 % (0.0-1.1); ABSOLUTE IMMATURE GRANULOCYTES 0.03 10^3/uL (0.00-0.10); ADD DIFF? NO; ADD MORPH? NO; ADD SCAN? NO; ATYPICAL LYMPHOCYTE FLAG 0 (0-99); FRAGMENT RBC FLAG 0 (0-99); HEMATOCRIT 35.4 % (38.0-47.0); LEFT SHIFT FLG 0 (0-99); LIPEMIA HEMOLYSIS FLAG 80 (0-99); MEAN CELL HEMOGLOBIN 31.6 pg (27.9-34.1); MEAN CELL HEMOGLOBIN CONCENTR. 31.1 g/dL (32.4-36.7); MEAN CELL VOLUME 101.7 fL (81.5-99.8); MEAN PLATELET VOLUME 10.7 fL (8.7-11.7); PLATELET CLUMPS FLAG 0 (0-99); PLATELET COUNT 245 10^3/uL (150-400); RED BLOOD CELL COUNT 3.48 10^6/uL (4.18-5.33); RED CELL DISTRIBUTION WIDTH 13.7 % (11.5-15.2)
[2016-11-15 05:11] LABS: ANION GAP 9 mEq/L (8-16); CARBON DIOXIDE 22 mEq/l (22-31); CHLORIDE 110 mEq/L (97-110); GLOMERULAR FILTRATION RATE 58; GLUCOSE 66 mg/dL (70-100); POTASSIUM 3.9 mEq/L (3.5-5.2); SODIUM 141 mEq/L (134-144)
[2016-11-15] MEDS: LISINOPRIL 2.5 MG TAB PO SCH (07:58)
[2016-11-15] MEDS: PANTOPRAZOLE SODIUM 40 MG in NS 100 ML IV SCH ×2 (07:58→21:43)
[2016-11-15] MEDS: buPROPion SR 150 MG TAB PO SCH ×2 (07:59→21:41)
[2016-11-15] MEDS: CITALOPRAM 20 MG TAB PO SCH (07:59)
[2016-11-15] MEDS ORDERED: LORazepam 0.5 MG TAB PO PRN (09:15)
--- NOTE | 2016-11-15 09:16 | HOSPPROG ---
Hospitalist Progress Note Assessment/Plan: # stress cardiomyopathy - compensated, ef 50% - no BB given relative bradycardia - lisinopril # abd pain - better today; suspect functional; had normal EGD 2 years ago; - wean IV dialudid, ADAT # fibromyalgia - cont home meds # asthma - inhalers # RLS - home meds Subjective: abd pain better today; no CP Objective: Vital Signs Temp Pulse Resp BP Pulse Ox 36.4 C 95 16 122/73 H 92 11/15/16 07:51 11/15/16 07:51 11/15/16 07:51 11/15/16 07:51 11/15/16 03:54 Laboratory Results 11/15/16 03:50 11/15/16 03:50 11/14/16 11/15/16 11/16/16 05:59 05:59 05:59 Intake Total 2829 650 Output Total 200 1225 Balance 2629 -575 PT 12.3 SEC (12.0-15.0) 11/13/16 21:34 INR 0.92 (0.83-1.16) 11/13/16 21:34 cath note reviewed discussed with Dolores damian CM - Physical Exam Constitutional: no apparent distress, appears nourished Cardiovascular: regular rate and rhythym, no murmur, rub, or gallop Respiratory: no respiratory distress, no rales or rhonchi, clear to auscultation Gastrointestinal: normoactive bowel sounds, other (soft, mild TTP, no guarding/ rebound) ICD10 Worksheet Patient Problems: Problems Problem Status Onset Abdominal pain Acute Elevated troponin Acute
--- NOTE | 2016-11-15 09:46 | ECHO ---
[id number] + + [address] : : [place] [address] : : [phone] + + Adult Echocardiographic Report + --------+ :Name: AMBER KAUR JStudy Date: 11/15/2016 08:11 AM : : Hospital Admission Number: [id number] Locat ion: 210: :: 1960 Gender: Female Height: 67 in : :Age: 56 yrs Race: WH Weight: 156 l b : :Reason For Study: Eval LV Fx : : BSA: 1.8 mete rs2 : :History: Takotsubo cardiomyopathy : + --------+ MMode/2D Measurements \T\ Calculations IVSd: 0.72 cm LVIDd: 3.4 cm FS: 22.6 % Ao root diam: 2.9 cm LVPWd: 0.90 cm LVIDs: 2.6 cm EDV(Teich): 45.8 ml ACS: 1.8 cm ESV(Teich): 24.5 ml EF(Teich): 46.6 % Normal Measurement Values: + + :LVIDd (3.5-5.7cm) IVSd (0.6-1.1cm) LVPWd (0.6-1.1cm) Aortic Root (2.0-3.7cm)Left Atrium (1.5-4.0cm): :LV Vol(d) (76-115ml) LV Vol(s) (29-48ml) Ejec Fraction (50-65%)PV Danilo (0.6- 1.2m/s) TV Danilo (0.4-1.0m/s) : :MV E Danilo (0.8-1.0m/s)MV A Danilo (0.3-1.0m/s)LVOT Danilo (0.7-1.2m/s) Asc Ao Danilo ( 0.9-1.8m/s) : + + Doppler Measurements \T\ Calculations MV E max danilo: Ao V2 max: LV V1 max: PA V2 max: 81.4 cm/sec 110.5 cm/sec 71.1 cm/sec 90.9 cm/sec MV A max danilo: Ao max P.9 mmHg LV V1 max PG: PA max P.4 cm/sec 2.0 mmHg 3.3 mmHg MV E/A: 0.93 Left Ventricle The left ventricle is normal in size. There is normal left ventricular wall thickness. Left ventricular systolic function is low normal. Ejection Fraction = 50%. This patient has a takostubo cardiomyopathy. Right Ventricle The right ventricle is normal in size and function. Atria The left atrial size is normal. Right atrial size is normal. Mitral Valve The mitral valve is normal in structure and function. There is no evidence of mitral valve prolapse. There is no mitral valve stenosis. There is no mitral regurgitation noted. Tricuspid Valve Normal tricuspid valve. No tricuspid regurgitation. Aortic Valve The aortic valve is normal in structure and function. The aortic valve is trileaflet. There is no aortic stenosis. There is no aortic insufficiency. Pulmonic Valve The pulmonic valve is normal in structure and function. There is no pulmonic valvular regurgitation. Great Vessels The aortic root is normal size. Pericardium/Pleural There is no pericardial effusion. Conclusion A complete two-dimensional transthoracic echocardiogram was performed (2D, M-mode, Doppler and color flow Doppler). Left ventricular systolic function is low normal. Ejection Fraction = 50%. This patient has a takostubo cardiomyopathy. The right ventricle is normal in size and function. The left atrial size is normal. The mitral valve is normal in structure and function. The aortic valve is normal in structure and function. The aortic valve is trileaflet. There is no pericardial effusion. Final Reading Physician: Israel Abbott signed on 11/15/2016 09:44 AM Ordering Physician: Terrance Aguirre Performed By: Yao Coats, CS
[2016-11-15] MEDS: ONDANSETRON 4 MG/2 ML VIAL IVP PRN (15:08)
[2016-11-15] MEDS: oxyCODONE IR 5 MG TAB PO PRN (16:03)
[2016-11-15] MEDS: diphenhydrAMINE 25 MG CAP PO PRN ×2 (16:04→21:54)
--- NOTE | 2016-11-15 16:59 | PDCARPN ---
Cardiology Progress Note Assessment/Plan: Epigastric Pain- continues to have pain. Cardiac catheterization yesterday revealed normal coronary arteries. Suspect a noncardiac source. Continued workup/treatment per hospitalist service. Takotsubo Syndrome- troponin up to 1.4. Will repeat tomorrow a.m. Has apical dyskinesis characteristic for stress cardiomyopathy but overall only mildly reduced LV systolic function. Low dose PAM inhibitor for the next several weeks. Defer beta blockers secondary to significant asthma history. Repeat echo in 4 to 6 weeks. Disposition- stable for discharge from a cardiovascular standpoint. Will sign off. Patient has CD copies of her echocardiogram and cardiac catheterization for her return home to [place]. 11/15/16 16:56 Subjective: Continues to have significant epigastric pain. Reviewed/Discussed With: family Objective: Vital Signs (8 Hrs) Temp Pulse Resp BP 11/15/16 15:56 37.2 C 87 17 118/89 H 11/15/16 12:00 37.3 C 90 24 H 121/76 H Intake/Output (24 Hrs) 11/14/16 11/15/16 11/16/16 05:59 05:59 05:59 Intake Total 2829 650 910 Output Total 200 1225 1500 Balance 2629 -575 -590 Intake: Oral (ml) 600 650 800 IV Infused (ml) 2229 110 Magnesium Sulf 1 gm/ 100 Dextrose 100 ml @ 100 mls /hr IV ONCE ONE Rx#: [id number] POTASSIUM Cl (KCl) 40 meq 129 In Ns 1,000 ml @ 100 mls /hr IV CONT [facility] Rx#: [id number] Pantoprazole Sodium 40 mg 110 In Ns 100 ml @ 200 mls/ hr IV BID [facility] Rx#: [id number] Output: Urine (ml) 200 1225 1500 Toilet 200 1225 1500 Other: Weight 71.033 kg Number of Voids 1 Toilet 1 2 2 Result Diagrams: 11/15/16 03:50 11/15/16 03:50 Cardiac Labs: Cardiac Lab Results (72 Hrs) 11/14/16 04:21 Troponin I 1.430 H - Physical Exam Constitutional: WDWN, no apparent distress Eyes: anicteric sclera Cardiovascular: regular rate and rhythm, no gallops Respiratory: clear to auscultate bilat Gastrointestinal: normoactive bowel sounds, no masses, tenderness Skin: no rashes, no edema Neurologic: AAOx3 Psychiatric: not anxious ICD10 Worksheet Patient Problems: Problems Problem Status Onset Abdominal pain Acute Elevated troponin Acute
[2016-11-15] MEDS: valACYclovir 500 MG TAB PO SCH (21:41)
[2016-11-15] MEDS: ROTIGOTINE 2 MG TD SCH (21:42)
[2016-11-16] MEDS: HYDROmorphONE/DILAUDID 1 MG/ML SYR IVP PRN (03:59)
[2016-11-16 04:34] LABS: % IMMATURE GRANULYOCYTES 0.4 % (0.0-1.1); ABSOLUTE IMMATURE GRANULOCYTES 0.03 10^3/uL (0.00-0.10); ADD DIFF? NO; ADD MORPH? NO; ADD SCAN? NO; ATYPICAL LYMPHOCYTE FLAG 0 (0-99); FRAGMENT RBC FLAG 0 (0-99); HEMATOCRIT 32.9 % (38.0-47.0); HEMOGLOBIN 10.2 g/dL (12.6-16.3); LEFT SHIFT FLG 0 (0-99); LIPEMIA HEMOLYSIS FLAG 80 (0-99); MEAN CELL HEMOGLOBIN 31.4 pg (27.9-34.1); MEAN CELL VOLUME 101.2 fL (81.5-99.8); MEAN PLATELET VOLUME 10.5 fL (8.7-11.7); PLATELET CLUMPS FLAG 0 (0-99); PLATELET COUNT 186 10^3/uL (150-400); RED BLOOD CELL COUNT 3.25 10^6/uL (4.18-5.33); RED CELL DISTRIBUTION WIDTH 13.3 % (11.5-15.2)
[2016-11-16 04:42] LABS: ANION GAP 10 mEq/L (8-16); CALCIUM 8.5 mg/dL (8.5-10.4); CARBON DIOXIDE 23 mEq/l (22-31); CHLORIDE 108 mEq/L (97-110); GLOMERULAR FILTRATION RATE 58; GLUCOSE 62 mg/dL (70-100); MAGNESIUM 1.7 mg/dL (1.6-2.3); POTASSIUM 3.9 mEq/L (3.5-5.2); SODIUM 141 mEq/L (134-144)
[2016-11-16 04:52] LABS: TROPONIN I 0.106 ng/mL (0-0.034)
[2016-11-16] MEDS: PANTOPRAZOLE SODIUM 40 MG in NS 100 ML IV SCH (08:15)
[2016-11-16] MEDS: ONDANSETRON 4 MG/2 ML VIAL IVP PRN ×2 (08:18→15:07)
[2016-11-16] MEDS: LISINOPRIL 2.5 MG TAB PO SCH (08:21)
[2016-11-16] MEDS: CITALOPRAM 20 MG TAB PO SCH (08:22)
[2016-11-16] MEDS: buPROPion SR 150 MG TAB PO SCH ×2 (08:22→20:49)
[2016-11-16] MEDS: oxyCODONE IR 5 MG TAB PO PRN ×5 (08:22→23:15)
--- NOTE | 2016-11-16 09:20 | HOSPPROG ---
Hospitalist Progress Note Assessment/Plan: # stress cardiomyopathy - compensated, ef 50% - no BB per cards given asthma - lisinopril 2.5 - cards signed off # epigastric pain - suspect functional; reported normal EGD 2 years ago - macrocytic anemia, slowly drifting down, small hiatal hernia - GI consult - stop dilaudid IV # fibromyalgia - cont home meds # asthma - inhalers # RLS - home meds Subjective: pain worse today; started with an episode of emesis Objective: Vital Signs Temp Pulse Resp BP Pulse Ox 37 C 82 19 101/70 92 11/16/16 03:48 11/16/16 07:58 11/16/16 07:58 11/16/16 07:58 11/16/16 07:58 Laboratory Results 11/16/16 03:43 11/16/16 03:43 11/15/16 11/16/16 11/17/16 05:59 05:59 05:59 Intake Total 650 2310 Output Total 1225 2200 Balance -575 110 PT 12.3 SEC (12.0-15.0) 11/13/16 21:34 INR 0.92 (0.83-1.16) 11/13/16 21:[address] Mendoza tele reviewed - no ventricular arrhythmias - Physical Exam Constitutional: uncomfortable Cardiovascular: regular rate and rhythym, no murmur, rub, or gallop Respiratory: no respiratory distress, no rales or rhonchi, clear to auscultation Gastrointestinal: normoactive bowel sounds, other (soft, epigastric TTP; ), No guarding, No rebound ICD10 Worksheet Patient Problems: Problems Problem Status Onset Abdominal pain Acute Elevated troponin Acute
[2016-11-16] MEDS: diphenhydrAMINE 25 MG CAP PO PRN (11:18)
[2016-11-16] MEDS: LIDOCAINE 5% 1 EA PATCH TD SCH (11:18)
[2016-11-16] MEDS: RIFAXIMIN 550 MG TAB PO SCH ×2 (15:06→20:49)
[2016-11-16] MEDS ORDERED: ONDANSETRON DISINTEGRATING 4 MG TAB PO PRN (16:51)
[2016-11-16] MEDS: ROTIGOTINE 2 MG TD SCH (19:04)
--- NOTE | 2016-11-16 19:12 | GCON ---
[f rep st] CONSULTATION DATE OF CONSULTATION: 11/16/[address] Hill, Thank you very kindly for asking me to evaluate the patient in consultation for a chief complaint of abdominal pain, nausea, vomiting, and diarrhea. She is a 56-year-old female with underlying fibrom yalgia who traveled from [place] last week for her mother's surprise 75th birthday this coming . She says the trip out from [place] was a bit difficult on her fibromyalgia with an incre ased amount of pain with difficulty sleeping and she progressively started feeling worse when she ar rived on Monday. She developed the abrupt onset of what she describes as diaphoresis, nausea, vomit ing, and diarrhea that began after dinner on Monday night. The pain and symptoms were reminiscent o f a previous episode of pancreatitis she had about 2 years ago which was thought to be medication in [facility] and she was concerned and came to the emergency room. Her admission LFTs and lipase were angel deon normal. The patient has an interesting form of cardiomyopathy that is nonischemic in nature, but she was fou nd to have an elevation in troponin to as high as 1.43 on the that is felt to be related to thi s cardiomyopathy but that is not atherosclerotic occlusive related. It is, however, felt by the [facility] team that this leak of troponin is not a cause of pain. Her lipase has remained normal. Her w kyree blood count has also been normal. A CT scan of the abdomen and pelvis shows an absent gallblad michael with a slightly dilated biliary tree consistent with a post cholecystectomy state, a normal panc reas, and no other etiology for acute pain. The patient was improving steadily with conservative ma nagement, but today, developed worsening vomiting interestingly which coincided with the withdrawal of her IV Dilaudid. She continues to have epigastric right upper quadrant and flank pain, as well a s diffuse musculoskeletal complaints and some diarrhea today. I am asked to assist with further haile luation and management. PAST MEDICAL HISTORY: Significant for fibromyalgia, depression, acute pancreatitis that was medicat ion induced, restless legs syndrome, reactive airways disease, cardiomyopathy. PAST SURGICAL HISTORY: A cholecystectomy in the mid , reportedly for gallstone related disease , although I am unclear as to the true indication for her cholecystectomy. She has had bilateral or thopedic interventions on her knees, rotator cuff, and ankle surgery, all related to degenerative ar thritis. She has had an upper endoscopy and a colonoscopy in 2015 while living in [place] that h ave been reportedly normal. I do not have these official reports. L4 laminectomy. A total abdomin al hysterectomy. MEDICATIONS: On admission include citalopram, bupropion, ropinirole. ALLERGIES: Penicillin. FAMILY HISTORY: Negative for irritable bowel syndrome, gallbladder disease, pancreatitis, or colon cancer. SOCIAL HISTORY: The patient lives in [place]. She is . She uses marijuana occasionally. Rare alcohol. She is here visiting her mom who lives in [place] for her surprise 75th birthday wh ich is to happen next Monday. REVIEW OF SYSTEMS: CONSTITUTIONAL: She reports diaphoresis with sweating that occurred on Monday a nd has been episodic, although to a lesser degree since then. No overt fever. She reports malaise, some nausea, and a loss of appetite. No overt weight loss. No chills or night sweats. HEENT: No headache. No visual disturbances. No sore throat. No rhinorrhea. No ear pain. PULMONARY: No c ough or shortness of breath. CARDIOVASCULAR: She denies chest pain. Denies palpitations or dyspne a with exertion. Denies having difficulty with breathing while lying flat. GI: She reports some c onstipation intermittently, diarrhea recently that is non bloody. No melena or hematochezia. She h as had several episodes of nausea, regurgitation, and vomiting that has also been non bloody. She r eports diffuse multifocal abdominal pain that has been a dull cramping nature. RHEUMATOLOGIC: Mult iple complaints of musculoskeletal and joint pain that is diffuse and involving most all joints. Mahendra rawls also reports muscle pain in her flank and back and shoulders. DERMATOLOGIC: No jaundice or rash. No pruritus. NEUROLOGIC: No falls, paresthesias, or weakness. PSYCHIATRIC: She has depression and some anxiety. She reports restless legs syndrome and insomnia. PHYSICAL EXAM: VITAL SIGNS: Blood pressure 101/70, heart rate 82, respirations 19, oxygenation 92% on 2 L nasal cannula. Temperature 37. GENERAL: Obese female in no acute distress. HEENT: Normo cephalic, atraumatic. Sclerae anicteric. NECK: Supple. Mucous membranes moist. No oral thrush. PULMONARY: Clear to auscultation bilaterally. CARDIOVASCULAR: Regular rate and rhythm without mu rmur, rub, or gallop. No ectopy. GI: Abdomen soft, obese, nontender, nondistended. No organomega ly. No rebound, guarding, ascites. Normal bowel sounds. No palpable mass. No herniation. SKIN: Without jaundice, rash, or lesion. MUSCULOSKELETAL: Full range of motion bilaterally. No focal t enderness or pain appreciated. No joint swelling or deformity. NEUROLOGIC: Alert to person, place , and time. Cranial nerves normal. Motor nonfocal. Gait nonataxic. No asterixis. DATABASE: White blood count 7.5, hematocrit 32.9 with an MCV of 101.2. Platelets 186. AST 30, ALT 30, alkaline phosphatase 75, total bilirubin 0.6, lipase 133. Sodium 141, potassium 3.9, chloride 110, bicarbonate 22. BUN 9, creatinine 1.0, glucose 66. CT scan of the abdomen and pelvis, October: Mild bibasilar atelectasis. The heart size is normal. There is very mild extrahepatic kraig iary ductal dilatation measuring 8 mm without focal filling defect. The liver is normal. The splee n, pancreas, adrenals, and kidneys are normal. A small hiatal hernia. There is a lipomatous ileoce ferny valve. The colon and small bowel are otherwise normal. Appendix is normal. No free fluid or a ir. L4 laminectomy is noted. L5 and S1 facets are fused. Bladder is normal. Uterus is surgically absent. IMPRESSION: 1. Abdominal pain, multifocal. 2. Nausea with vomiting. 3. Diarrhea. 4. Fibromyalgia. RECOMMENDATIONS: 1. I believe that the patient has a functional bowel syndrome likely related in some way to her und erlying fibromyalgia and perhaps flared by her recent travel and environmental stress over the plann ing and execution of her mom's birthday green party. 2. I would recommend a conservative approach to treatment at this time beginning with the Xifaxan 5 50 mg p.o. t.i.d. and eliminating IV narcotics. 3. Small frequent meals that are lactose and caffeine free. 4. Antispasmodic therapy such as Librax 1 capsule p.o. t.i.d. can be added as an adjunct to pain. 5. Her biliary dilation is likely due to post cholecystectomy state and with a normal lipase and LF Ts, does not need further evaluation. 6. Scheduled Zofran 4 mg oral dissolving tablets prior to meals preemptively to help with meal-rela ella nausea, vomiting. 7. Send stool for C difficile to exclude infectious diarrhea. 8. If she fails to improve regarding her upper abdominal pain and continues to have nausea with vom iting, then an upper endoscopy can be considered. /[id number]/MODL
[2016-11-16] MEDS: PANTOPRAZOLE SODIUM 40 MG TAB PO SCH (20:49)
[2016-11-16] MEDS: valACYclovir 500 MG TAB PO SCH (20:49)
[2016-11-16] MEDS ORDERED: PATCH REMOVAL 1 EA PATCH TD SCH (21:00)
[2016-11-17] MEDS: oxyCODONE IR 5 MG TAB PO PRN ×2 (03:08→09:16)
[2016-11-17 04:17] VITALS: PULSE 77
[2016-11-17] MEDS: diphenhydrAMINE 25 MG CAP PO PRN (04:51)
[2016-11-17 05:05] LABS: % IMMATURE GRANULYOCYTES 0.3 % (0.0-1.1); ABSOLUTE IMMATURE GRANULOCYTES 0.02 10^3/uL (0.00-0.10); ADD DIFF? NO; ADD MORPH? NO; ADD SCAN? NO; ATYPICAL LYMPHOCYTE FLAG 10 (0-99); FRAGMENT RBC FLAG 10 (0-99); HEMATOCRIT 32.5 % (38.0-47.0); HEMOGLOBIN 10.3 g/dL (12.6-16.3); LEFT SHIFT FLG 0 (0-99); LIPEMIA HEMOLYSIS FLAG 80 (0-99); MEAN CELL HEMOGLOBIN 31.8 pg (27.9-34.1); MEAN CELL HEMOGLOBIN CONCENTR. 31.7 g/dL (32.4-36.7); MEAN CELL VOLUME 100.3 fL (81.5-99.8); MEAN PLATELET VOLUME 11.1 fL (8.7-11.7); PLATELET CLUMPS FLAG 20 (0-99); PLATELET COUNT 212 10^3/uL (150-400); RED BLOOD CELL COUNT 3.24 10^6/uL (4.18-5.33); RED CELL DISTRIBUTION WIDTH 13.2 % (11.5-15.2)
[2016-11-17 07:36] VITALS: BP 109/70; RESP 18; TEMP 98; O2SAT 93
[2016-11-17] MEDS: LISINOPRIL 2.5 MG TAB PO SCH (09:17)
[2016-11-17] MEDS: RIFAXIMIN 550 MG TAB PO SCH (09:17)
[2016-11-17] MEDS: CITALOPRAM 20 MG TAB PO SCH (09:17)
[2016-11-17] MEDS: PANTOPRAZOLE SODIUM 40 MG TAB PO SCH (09:18)
[2016-11-17] MEDS: buPROPion SR 150 MG TAB PO SCH (09:18)
[2016-11-17] MEDS: LIDOCAINE 5% 1 EA PATCH TD SCH (09:18)
--- NOTE | 2016-11-17 17:04 | PDDCSUM ---
Discharge Summary Discharge Summary: DISCHARGE SUMMARY FOLLOW-UP ITEMS: Repeat outpatient echocardiogram, outpatient EGD DATE OF ADMISSION: 11/13/2016 DATE OF DISCHARGE: 11/16/2016 DISCHARGE DIAGNOSES: 1. Nonischemic Takasubo cardiomyopathy 2. Suspected irritable bowel syndrome 3. Chronic fibromyalgia CONSULTATIONS: Cardiology PROCEDURES / IMAGING: Cardiac catheterization demonstrating no obstructive coronary disease, ejection fraction approximately 50% CHIEF COMPLAINT: Acute nausea and vomiting SUBJECTIVE: Patient is feeling well at time of discharge, her symptoms are well controlled on oral medications PHYSICAL EXAM ON DISCHARGE: Systolic blood pressure is 110, heart rate 70, satting well on room air, alert awake oriented x3 with no apparent distress, breathing well, lungs are clear to auscultation bilaterally, heart rate and rhythm are normal LABS ON DISCHARGE: Potassium 3.9, creatinine 1.0, hemoglobin A1c 5.5, LDL 87, liver panel unremarkable, peak troponin 1.4 HOSPITAL COURSE BY PROBLEM: 1. Nonischemic cardiomyopathy. Patient presented with acute GI symptoms and was noted that she had elevated troponin level, peaked at 1.4. This is most likely secondary to stress-induced cardiomyopathy resulting in Takasubo appearance noted on cardiac catheterization. She had no evidence of obstructive coronary disease and she did have a mildly reduced ejection fraction on left ventriculogram, 50%. Cardiology service recommended initiating lisinopril 2.5 mg daily and monitoring blood pressure affect. They recommend outpatient repeat echocardiogram. They did not recommend beta- mirta here given her underlying asthma. She did not demonstrate any evidence of decompensated systolic congestive heart failure and she does not require diuretic at time of discharge. She was monitored on telemetry for evidence of any arrhythmias, and she had none. 2. Suspected irritable bowel syndrome. Patient's presenting symptoms of nausea and vomiting are most likely an acute decompensation of a functional bowel disorder, in the setting of increased stress and recent travel to plan patient' s mother's birthday green party here in [facility]. She was seen in consultation by Gastroenterology and they recommended initiating rifaxamin scheduled as well as antispasmodic such as Bentyl PRN. She was also prescribed as needed Zofran for nausea control. Her last EGD was 2 years ago only recommended a follow-up EGD in the outpatient setting. She is currently maintaining good oral intake at time of discharge is safe to be discharged home. 3. Chronic fibromyalgia. Patient was continued on her home medications and we stressed the importance of avoiding long-term opiate use. The patient will use a limited supply of oxycodone to manage acute pain experienced in the setting of hospitalization, and she will wean off of these immediately in the outpatient setting. DISCHARGE MEDICATIONS: Please see official discharge medication reconciliation sheet in chart , as needed oxycodone 5 mg tabs prescribed, as needed Zofran, as needed Bentyl, scheduled rifaxamin, scheduled lisinopril 2.5 mg daily. DISCHARGE INSTRUCTIONS: Please follow up with primary care provider upon returning to [place]. TIME SPENT: Greater than 30 minutes were spent on direct patient care, as well as discharge planning and preparation.
== END 2016-11-17 13:15 | disposition home or self-care (01) | DRG 287 ==
LOC: OBSVTOIN 11-14 02:51 → F2W 11-14 03:02
PROVIDERS: ADMIT Internal Medicine; ATTEND Internal Medicine
PROC: B2151ZZ Fluoroscopy of Left Heart using Low Osmolar Contrast (ICD-10-PCS; principal; 2016-11-14)
PROC: 4A023N7 Measurement of Cardiac Sampling and Pressure, Left Heart, Percutaneous Approach (ICD-10-PCS; principal; 2016-11-14)
PROC: B2111ZZ Fluoroscopy of Multiple Coronary Arteries using Low Osmolar Contrast (ICD-10-PCS; principal; 2016-11-14)
DX: I51.81 Takotsubo syndrome (principal); M79.7 Fibromyalgia; K58.0 Irritable bowel syndrome with diarrhea; R10.13 Epigastric pain; J45.909 Unspecified asthma, uncomplicated; M54.5 Low back pain; M25.569 Pain in unspecified knee; F12.90 Cannabis use, unspecified, uncomplicated; F32.9 Major depressive disorder, single episode, unspecified; Z88.0 Allergy status to penicillin; Z79.51 Long term (current) use of inhaled steroids
CPT/HCPCS: 96374; C1760; J0583; J1170; J1644; J1650; J2250; J2405; J2550; J3010; J3475; Q9967

== ENCOUNTER 2016-11-27 17:48 | Observation (INO) | payer MEDICAID ==
[2016-11-27] MEDS ORDERED: ONDANSETRON 4 MG/2 ML VIAL ONE (18:04)
[2016-11-27] MEDS ORDERED: NS 1,000 ML IV ONE (18:05)
[2016-11-27] MEDS ORDERED: KETAMINE 100 MG/10 ML SYR IVP ONE (18:06)
[2016-11-27] MEDS ORDERED: DICYCLOMINE 20 MG TAB PO ONE (18:06)
[2016-11-27] MEDS ORDERED: LORazepam 2 MG/ML INJ IVP ONE ×2 (18:06→19:15)
[2016-11-27] MEDS ORDERED: ONDANSETRON DISINTEGRATING 4 MG TAB ONE (18:08)
--- NOTE | 2016-11-27 18:10 | EDPHY ---
H & P Time Seen by Provider: 11/27/16 17:54 HPI/ROS: CHIEF COMPLAINT: Nausea and vomiting HISTORY OF PRESENT ILLNESS: The patient was discharged November 16 after being admitted for similar symptoms. She had suspected irritable bowel and fibromyalgia along with nonischemic Takasubo cardiomyopathy. Patient was doing well until early this morning when she awakened at 5:00 a.m. with multiple episodes of nausea and vomiting. A little bit of diarrhea. Minimal abdominal pain and no blood or coffee grounds in the emesis. Not associated with chest pain or shortness of breath. REVIEW OF SYSTEMS: Eye: no change in vision ENT: no sore throat Cardiac: no chest pain or syncope Pulmonary: no cough or SOB Abdomen: HPI Musculoskeletal: Multiple polyarthralgias, stable and unchanged. Skin: no rash Neuro: no headache Constitutional: no fever : no urinary symptoms A comprehensive 10 point review of systems is otherwise negative aside from elements mentioned in the history of present illness. PAST MEDICAL HISTORY: History and physical dated 11/14/2016 personally reviewed. Includes asthma, fibromyalgia, multiple orthopedic surgeries, cholecystectomy, drug induced pancreatitis 2 years ago. Social history: Visiting from [place] for her mother's birthday which was on November 22. Here with her best friend in the room. General Appearance: Alert and conversant, cooperative. Actively vomiting and dry heaving. Eyes: No scleral icterus. ENT, Mouth: Normal mucous membranes. Respiratory: Normal respiratory effort, breath sounds equal, lungs are clear to auscultation. Cardiovascular: Regular rate and rhythm. Gastrointestinal: No rebound or guarding, some mild diffuse tenderness. Bowel sounds present. Neurological: Alert and oriented x3. Normally conversant. Face symmetric, normal movement and sensation in all extremities. Skin: Warm and dry, no rashes. Musculoskeletal: No peripheral edema and no joint swelling. Psychiatric: Appears anxious. Emergency Department course/MDM: Noted to be on Lexapro. Ketamine 20 mg IV and Ativan 1 mg IV ordered. Normal saline hydration for dehydration and vomiting. Oral Bentyl. 1907: Feels better, still feels a little bit queasy in her abdomen. No rebound or guarding and no peritoneal signs. With new abnormal EKG, will admit for continued symptom control, cycle troponins , echo in the morning as recommended by Dr. Verma. Smoking Status: Never smoked Constitutional: Initial Vital Signs Temperature (C) 36.6 C 11/27/16 17:49 Heart Rate 118 H 11/27/16 17:49 Respiratory Rate 20 11/27/16 17:49 Blood Pressure 186/112 H 11/27/16 17:49 O2 Sat (%) 98 11/27/16 17:49 O2 Delivery Mode Room Air Allergies/Adverse Reactions: Penicillins Allergy (Verified 11/14/16 09:53) Rash/Throat swelling Home Medications: Medication Instructions Recorded buPROPion SR [Wellbutrin 150mg SR 150 mg PO BID 11/13/16 (*)] Albuterol [Proventil Inhaler HFA 1 - 2 puffs IH DAILY PRN 11/14/16 (*)] Citalopram Hydrobromide [Celexa] 40 mg PO DAILY 11/14/16 Esomeprazole Mag Trihydrate 40 mg PO DAILY 11/14/16 [Nexium] Rotigotine [Neupro] 1 each TD DAILY18 11/14/16 Sumatriptan Succinate 6 mg SQ DAILY PRN 11/14/16 rOPINIRole HCL [Requip 2mg (*)] 2 mg PO BID@,14 11/14/16 traMADol [Ultram 50 mg (*)] 50 mg PO Q8HRS PRN 11/14/16 valACYclovir [Valtrex (*)] 500 mg PO HS 11/14/16 Acetaminophen [Tylenol 325mg (*)] 650 mg PO Q4HRS PRN #0 tab 11/17/16 Dicyclomine [Bentyl 20 MG (*)] 10 - 20 mg PO QID PRN #60 tab 11/17/16 Lisinopril [Zestril 2.5 mg (*)] 2.5 mg PO DAILY #30 tab 11/17/16 Ondansetron Odt [Zofran Odt 4 mg 4 mg PO Q6 PRN #40 tab 11/17/16 (*)] Rifaximin [Xifaxan] 0 mg PO TID 11/27/16 Medical Decision Making - Diagnostics EKG Interpretation: 12-lead EKG interpreted by me; official reading is in trace master. My interpretation is sinus rhythm with left axis and inferior lateral T-wave inversions which are new. Differential Diagnosis: Differential considered including but not limited to bowel obstruction, other acute surgical abdominal process, irritable bowel, acute coronary syndrome. Consult/Admit Bed Type: zayra, reviewed EKG 1850; Jaren 1915 - Data Points Laboratory Results: Laboratory Results 11/27/16 18:25 11/27/16 18:25 11/27/16 11/27/16 18:25 18:25 WBC 20.78 10^3/uL H 10^3/uL (3.80-9.50) RBC 4.55 10^6/uL 10^6/uL (4.18-5.33) Hgb 13.9 g/dL g/dL (12.6-16.3) Hct 42.4 % % (38.0-47.0) MCV 93.2 fL fL (81.5-99.8) MCH 30.5 pg pg (27.9-34.1) MCHC 32.8 g/dL g/dL (32.4-36.7) RDW 13.6 % % (11.5-15.2) Plt Count 469 10^3/uL H 10^3/uL (150-400) MPV 10.5 fL fL (8.7-11.7) Neut % (Auto) 72.1 % % (39.3-74.2) Lymph % (Auto) 19.6 % % (15.0-45.0) [place] % (Auto) 6.5 % % (4.5-13.0) Eos % (Auto) 0.5 % L % (0.6-7.6) Baso % (Auto) 0.8 % % (0.3-1.7) Nucleat RBC Rel Count 0.0 % % (0.0-0.2) Absolute Neuts (auto) 14.95 10^3/uL H 10^3/uL (1.70-6.50) Absolute Lymphs (auto) 4.08 10^3/uL H 10^3/uL (1.00-3.00) Absolute Monos (auto) 1.36 10^3/uL H 10^3/uL (0.30-0.80) Absolute Eos (auto) 0.11 10^3/uL 10^3/uL (0.03-0.40) Absolute Basos (auto) 0.17 10^3/uL H 10^3/uL (0.02-0.10) Absolute Nucleated RBC 0.00 10^3/uL 10^3/uL (0-0.01) Immature Gran % 0.5 % % (0.0-1.1) Immature Gran # 0.11 10^3/uL H 10^3/uL (0.00-0.10) Sodium 140 mEq/L mEq/L (134-144) Potassium 3.9 mEq/L mEq/L (3.5-5.2) Chloride 107 mEq/L mEq/L (97-110) Carbon Dioxide 16 mEq/l L mEq/l (22-31) Anion Gap 17 mEq/L H mEq/L (8-16) BUN 16 mg/dL mg/dL (7-23) Creatinine 1.3 mg/dL H mg/dL (0.6-1.0) Estimated GFR 43 Glucose 180 mg/dL H mg/dL (70-100) Calcium 11.2 mg/dL H mg/dL (8.5-10.4) Phosphorus 1.7 mg/dL L mg/dL (2.5-4.5) Total Bilirubin 0.7 mg/dL mg/dL (0.1-1.4) Conjugated Bilirubin 0.3 mg/dL mg/dL (0.0-0.5) Unconjugated Bilirubin 0.4 mg/dL mg/dL (0.0-1.1) AST 30 IU/L IU/L (14-46) ALT 32 IU/L IU/L (9-52) Alkaline Phosphatase 77 IU/L IU/L (38-126) Troponin I < 0.012 ng/mL ng/mL (0-0.034) Total Protein 8.4 g/dL H g/dL (6.3-8.2) Albumin 5.0 g/dL g/dL (3.5-5.0) Lipase 186.0 IU/L IU/L (23-300) Medications Given: Discontinued Medications Dicyclomine HCl (Bentyl) 20 mg PO EDNOW ONE Stop: 11/27/16 18:07 Last Admin: 11/27/16 18:42 Dose: 20 mg Hydromorphone HCl (Dilaudid) 1 mg IVP EDNOW ONE Stop: 11/27/16 19:36 Last Admin: 11/27/16 19:38 Dose: 1 mg Sodium Chloride (Ns) 1,000 mls @ 0 mls/hr IV EDNOW ONE; Wide Open PRN Reason: Protocol Stop: 11/27/16 18:06 Last Admin: 11/27/16 18:22 Dose: 1,000 mls Ketamine HCl (Ketamine) 20 mg IVP EDNOW ONE Stop: 11/27/16 18:07 Last Admin: 11/27/16 18:23 Dose: 20 mg Lorazepam (Ativan Injection) 1 mg IVP EDNOW ONE Stop: 11/27/16 18:07 Last Admin: 11/27/16 18:23 Dose: 1 mg Lorazepam (Ativan Injection) 1 mg IVP EDNOW ONE Stop: 11/27/16 19:16 Last Admin: 11/27/16 19:20 Dose: 1 mg Ondansetron HCl (Zofran Odt) 4 mg PO EDNOW ONE Stop: 11/27/16 18:12 Last Admin: 11/27/16 18:20 Dose: 4 mg Ondansetron HCl (Zofran) 4 mg IVP EDNOW ONE Stop: 11/27/16 18:37 Last Admin: 11/27/16 18:40 Dose: 4 mg Departure - Departure Disposition: [facility] Acute Clinical Impression: Dehydration, Abnormal EKG Nausea & vomiting Qualifiers: Vomiting type: unspecified Vomiting Intractability: non-intractable Qualified Code(s): R11.2 - Nausea with vomiting, unspecified Condition: Good
[2016-11-27] MEDS ORDERED: ONDANSETRON DISINTEGRATING 4 MG TAB PO ONE (18:11)
--- NOTE | 2016-11-27 18:35 | CPEKG ---
Heart Rate: 94 RR Interval: 638 P-R Interval: 140 QRSD Interval: 98 QT Interval: 396 QTC Interval: 496 P [place]: 0 QRS [place]: -40 T Wave [place]: 265 EKG Severity - ABNORMAL ECG - EKG Impression: WANDERING PACEMAKER EKG Impression: LEFT AXIS DEVIATION EKG Impression: ABNORMAL T, PROBABLE ISCHEMIA, WIDESPREAD EKG Impression: BORDERLINE PROLONGED QT INTERVAL Electronically Signed By: Santosh Prado 27-Nov-2016 18:39:29
[2016-11-27] MEDS ORDERED: ONDANSETRON 4 MG/2 ML VIAL IVP ONE (18:36)
[2016-11-27 18:43] LABS: % IMMATURE GRANULYOCYTES 0.5 % (0.0-1.1); ABSOLUTE IMMATURE GRANULOCYTES 0.11 10^3/uL (0.00-0.10); ADD DIFF? NO; ADD MORPH? NO; ADD SCAN? NO; ATYPICAL LYMPHOCYTE FLAG 0 (0-99); FRAGMENT RBC FLAG 0 (0-99); HEMATOCRIT 42.4 % (38.0-47.0); HEMOGLOBIN 13.9 g/dL (12.6-16.3); LEFT SHIFT FLG 0 (0-99); LIPEMIA HEMOLYSIS FLAG 80 (0-99); MEAN CELL HEMOGLOBIN 30.5 pg (27.9-34.1); MEAN CELL HEMOGLOBIN CONCENTR. 32.8 g/dL (32.4-36.7); MEAN CELL VOLUME 93.2 fL (81.5-99.8); MEAN PLATELET VOLUME 10.5 fL (8.7-11.7); PLATELET CLUMPS FLAG 0 (0-99); PLATELET COUNT 469 10^3/uL (150-400); RED BLOOD CELL COUNT 4.55 10^6/uL (4.18-5.33); RED CELL DISTRIBUTION WIDTH 13.6 % (11.5-15.2)
[2016-11-27 18:50] LABS: ALANINE AMINOTRANSFERASE 32 IU/L (9-52); ALKALINE PHOSPHATASE 77 IU/L (38-126); ANION GAP 17 mEq/L (8-16); ASPARTATE AMINOTRANSFERASE 30 IU/L (14-46); BILIRUBIN,TOTAL 0.7 mg/dL (0.1-1.4); BILIRUBIN-CONJUGATED 0.3 mg/dL (0.0-0.5); BILIRUBIN-UNCONJUGATED 0.4 mg/dL (0.0-1.1); CALCIUM 11.2 mg/dL (8.5-10.4); CARBON DIOXIDE 16 mEq/l (22-31); CHLORIDE 107 mEq/L (97-110); CREATININE 1.3 mg/dL (0.6-1.0); GLOMERULAR FILTRATION RATE 43; GLUCOSE 180 mg/dL (70-100); POTASSIUM 3.9 mEq/L (3.5-5.2); SODIUM 140 mEq/L (134-144); TOTAL PROTEIN 8.4 g/dL (6.3-8.2)
[2016-11-27 19:01] LABS: TROPONIN I < 0.012 ng/mL (0-0.034)
[2016-11-27] MEDS ORDERED: PROMETHAZINE HCL 25 MG/ML INJ IVP PRN (19:15)
[2016-11-27] MEDS ORDERED: PROMETHAZINE HCL 25 MG TAB PO PRN (19:15)
[2016-11-27] MEDS ORDERED: ONDANSETRON DISINTEGRATING 4 MG TAB PO PRN ×2 (19:15→19:27)
[2016-11-27] MEDS ORDERED: ACETAMINOPHEN 325 MG TAB PO PRN (19:15)
[2016-11-27] MEDS ORDERED: ONDANSETRON 4 MG/2 ML VIAL IVP PRN (19:15)
[2016-11-27] MEDS ORDERED: HYDROmorphONE/DILAUDID 1 MG/ML SYR IVP PRN (19:25)
[2016-11-27] MEDS ORDERED: PROCHLORPERAZINE MALEATE 25 MG SUPPR PR PRN (19:26)
[2016-11-27] MEDS ORDERED: PROCHLORPERAZINE MALEATE 10 MG TAB PO PRN (19:26)
--- NOTE | 2016-11-27 19:31 | PDGENHP ---
History and Physical - Chief Complaint Acute vomiting - History of Present Illness PCP: In [place] HPI: 56 yo F p/w acute vomiting characterized as non-bloody emesis w/ associated nausea and abdominal pain, located in the mid-epigastric area, onset of symptoms 5 a.m. on the day of presentation, duration persistent thereafter. Onset was sudden, and she had previously been feeling well. She was discharged from the hospital last week, and, since that time, has only required zofran for some intermittent nausea. She denies constipation, and she had some loose BMs today. She reports that her mother's bday green party went well, and she has been planning on returning to [place] in the next few days. She has been adherent to the lisinopril, but she reports that she may have vomited up the Rx today. Her insurance prevented her from receiving Xifaxan. History Information - Allergies/Home Medication List Allergies/Adverse Reactions: Penicillins Allergy (Verified 11/14/16 09:53) Rash/Throat swelling Home Medications: buPROPion SR [Wellbutrin 150mg SR (*)] 150 mg PO BID 11/13/16 [Last Taken 21:00] Albuterol [Proventil Inhaler HFA (*)] 1 - 2 puffs IH DAILY PRN 11/14/16 [Last Taken Unknown] Citalopram Hydrobromide [Celexa] 40 mg PO DAILY 11/14/16 [Last Taken 11/13/16] Esomeprazole Mag Trihydrate [Nexium] 40 mg PO DAILY 11/14/16 [Last Taken ] Rotigotine [Neupro] 1 each TD DAILY18 11/14/16 [Last Taken 11/13/16] Sumatriptan Succinate 6 mg SQ DAILY 11/14/16 [Last Taken Unknown] rOPINIRole HCL [Requip 2mg (*)] 2 mg PO BID@,11/14/16 [Last Taken 11/13/16 14:00] traMADol [Ultram 50 mg (*)] 50 mg PO Q8HRS PRN 11/14/16 [Last Taken Unknown] valACYclovir [Valtrex (*)] 500 mg PO HS 11/14/16 [Last Taken 11/12/16] I have personally reviewed and updated: family history, medical history, social history, surgical history - Past Medical History asthma (with nearly daily use of rescue inhaler, inhaled steroids, never been intubated), fibromyalgia (and restless legs syndrome) Additional medical history: Rx-induced pancreatitis approx 2 years ago. Suspected irritable bowel syndrome. Takasubo NICM w/ EF 50% and clean cath - Surgical History Reports: cholecystectomy Additional surgical history: numerous orthopedic surgeries on knees, rotator cuffs, ankle - Family History Additional family history: no premature CAD or VTE - Social History Smoking Status: Never smoked Alcohol Use: Occasionally Drug Use: None Additional social history: lives in [place], week-long roadtrip to [place] Review of Systems ROS: 10pt was reviewed & negative except for what was stated in HPI & below Gastrointestinal: Reports: vomitting, abdominal pain, diarrhea, nausea Physical Exam Temp Pulse Resp BP Pulse Ox 36.6 C 96 16 181/110 H 97 11/27/16 17:49 11/27/16 19:14 11/27/16 19:14 11/27/16 19:14 11/27/16 19:14 Constitutional: uncomfortable, No no apparent distress (mild distress), No not in pain (moderate abd pain) Eyes: PERRL, anicteric sclera, EOMI Ears, Nose, Mouth, Throat: hearing normal, other (tacky MM) Cardiovascular: tachycardia, No systolic murmur, No irregularly irregular, No edema Respiratory: no respiratory distress, no rales or rhonchi, clear to auscultation Gastrointestinal: tenderness (mid-epigastric area), other (hyperactive bowel sounds), No guarding, No distension Skin: warm, no rashes or abrasions, no fluctuance, no induration, other (many freckles), No mottled Neurologic: AAOx3, sensation intact bilaterally, No facial droop Psychiatric: not anxious, not encephalopathic, flat affect, No agitated Lab Data & Imaging Review 11/27/16 18:25 11/27/16 18:25 WBC 20.78 10^3/uL (3.80-9.50) H 11/27/16 18:25 RBC 4.55 10^6/uL (4.18-5.33) 11/27/16 18:25 Hgb 13.9 g/dL (12.6-16.3) 11/27/16 18:25 Hct 42.4 % (38.0-47.0) 11/27/16 18:25 MCV 93.2 fL (81.5-99.8) 11/27/16 18:25 MCH 30.5 pg (27.9-34.1) 11/27/16 18:25 MCHC 32.8 g/dL (32.4-36.7) 11/27/16 18:25 RDW 13.6 % (11.5-15.2) 11/27/16 18:25 Plt Count 469 10^3/uL (150-400) H 11/27/16 18:25 MPV 10.5 fL (8.7-11.7) 11/27/16 18:25 Neut % (Auto) 72.1 % (39.3-74.2) 11/27/16 18:25 Lymph % (Auto) 19.6 % (15.0-45.0) 11/27/16 18:25 [place] % (Auto) 6.5 % (4.5-13.0) 11/27/16 18:25 Eos % (Auto) 0.5 % (0.6-7.6) L 11/27/16 18:25 Baso % (Auto) 0.8 % (0.3-1.7) 11/27/16 18:25 Nucleat RBC Rel Count 0.0 % (0.0-0.2) 11/27/16 18:25 Absolute Neuts (auto) 14.95 10^3/uL (1.70-6.50) H 11/27/16 18:25 Absolute Lymphs (auto) 4.08 10^3/uL (1.00-3.00) H 11/27/16 18:25 Absolute Monos (auto) 1.36 10^3/uL (0.30-0.80) H 11/27/16 18:25 Absolute Eos (auto) 0.11 10^3/uL (0.03-0.40) 11/27/16 18:25 Absolute Basos (auto) 0.17 10^3/uL (0.02-0.10) H 11/27/16 18:25 Absolute Nucleated RBC 0.00 10^3/uL (0-0.01) 11/27/16 18:25 Immature Gran % 0.5 % (0.0-1.1) 11/27/16 18:25 Immature Gran # 0.11 10^3/uL (0.00-0.10) H 11/27/16 18:25 Sodium 140 mEq/L (134-144) 11/27/16 18:25 Potassium 3.9 mEq/L (3.5-5.2) 11/27/16 18:25 Chloride 107 mEq/L (97-110) 11/27/16 18:25 Carbon Dioxide 16 mEq/l (22-31) L 11/27/16 18:25 Anion Gap 17 mEq/L (8-16) H 11/27/16 18:25 BUN 16 mg/dL (7-23) 11/27/16 18:25 Creatinine 1.3 mg/dL (0.6-1.0) H 11/27/16 18:25 Estimated GFR 43 11/27/16 18:25 Glucose 180 mg/dL (70-100) H 11/27/16 18:25 Calcium 11.2 mg/dL (8.5-10.4) H 11/27/16 18:25 Phosphorus 1.7 mg/dL (2.5-4.5) L 11/27/16 18:25 Total Bilirubin 0.7 mg/dL (0.1-1.4) 11/27/16 18:25 Conjugated Bilirubin 0.3 mg/dL (0.0-0.5) 11/27/16 18:25 Unconjugated Bilirubin 0.4 mg/dL (0.0-1.1) 11/27/16 18:25 AST 30 IU/L (14-46) 11/27/16 18:25 ALT 32 IU/L (9-52) 11/27/16 18:25 Alkaline Phosphatase 77 IU/L (38-126) 11/27/16 18:25 Troponin I < 0.012 ng/mL (0-0.034) 11/27/16 18:25 Total Protein 8.4 g/dL (6.3-8.2) H 11/27/16 18:25 Albumin 5.0 g/dL (3.5-5.0) 11/27/16 18:25 Lipase 186.0 IU/L (23-300) 11/27/16 18:25 Visualized and Interpreted EKG results: Yes EKG Interpretation: Positive for: other (sinus tach w/ diffuse TWI) Assessment & Plan Assessment: 56 yo F p/w acute nausea and vomiting resulting in LUCRECIA, w/ EKG changes Plan: # Nausea and vomiting. Acute on chronic, has suspected irritable bowel syndrome , seen by Dr. Mendoza last week and recommended scheduled xifaxan + PRN bentyl - patient unable to get xifaxan b/c of insurance issues - tx supportively w/ bentyl, anti-emetics, PRN dilaudid - give IV ppi given location, possible gastritis component - IVF - hold on further abd imaging and gauge response to supportive care - if not improving, rec abd imaging and possible EGD (deferred last hospitalization, but GI did recommend as outpt to complete eval for IBS) # Takasubo non-ischemic cardiomyopathy. Recent, new diagnosis w/ EF 50% ( reviewed outside records including DC Summary by Dr. Eastman 11/17/16, suspected to be 2/2 stress of mother's bday) - EKG changes noted - d/w Dr. Prado, he reports he has spoken with Dr. Verma and he recommends repeat Echo, cycle trops - monitor on tele # Fibromyalgia. Occasionally takes oxy IR, provide if needed to avoid NSAIDs # LUCRECIA. 2/2 hypovolemia in setting of above, hold ACEi - give IVF, repeat Cr, monitor UOP Diet. Cardiac PPx. Low risk, SCDs Code. Full Dispo. ADD 11/28, pending stabilization of above.
[2016-11-27] MEDS ORDERED: HYDROmorphONE/DILAUDID 1 MG/ML SYR IVP ONE (19:35)
[2016-11-27] MEDS ORDERED: HYDROmorphONE/DILAUDID 1 MG/ML SYR ONE (19:36)
[2016-11-27] MEDS: PANTOPRAZOLE SODIUM 40 MG in NS 100 ML IV SCH (21:30)
[2016-11-27] MEDS: RIFAXIMIN 550 MG TAB PO SCH (21:46)
[2016-11-27] MEDS: DICYCLOMINE 20 MG TAB PO PRN (21:46)
[2016-11-28] MEDS: DICYCLOMINE 20 MG TAB PO PRN (00:20)
[2016-11-28] MEDS ORDERED: valACYclovir 500 MG TAB PO SCH (00:41)
[2016-11-28] MEDS ORDERED: LORazepam 0.5 MG TAB PO ONE (03:32)
[2016-11-28 05:07] LABS: % IMMATURE GRANULYOCYTES 0.3 % (0.0-1.1); ABSOLUTE IMMATURE GRANULOCYTES 0.03 10^3/uL (0.00-0.10); ADD DIFF? NO; ADD MORPH? NO; ADD SCAN? NO; ATYPICAL LYMPHOCYTE FLAG 0 (0-99); FRAGMENT RBC FLAG 0 (0-99); HEMATOCRIT 35.7 % (38.0-47.0); HEMOGLOBIN 11.3 g/dL (12.6-16.3); LEFT SHIFT FLG 0 (0-99); LIPEMIA HEMOLYSIS FLAG 80 (0-99); MEAN CELL HEMOGLOBIN 30.8 pg (27.9-34.1); MEAN CELL HEMOGLOBIN CONCENTR. 31.7 g/dL (32.4-36.7); MEAN CELL VOLUME 97.3 fL (81.5-99.8); MEAN PLATELET VOLUME 10.6 fL (8.7-11.7); PLATELET CLUMPS FLAG 0 (0-99); PLATELET COUNT 313 10^3/uL (150-400); RED BLOOD CELL COUNT 3.67 10^6/uL (4.18-5.33); RED CELL DISTRIBUTION WIDTH 13.9 % (11.5-15.2)
[2016-11-28 05:16] LABS: ANION GAP 10 mEq/L (8-16); CARBON DIOXIDE 21 mEq/l (22-31); CHLORIDE 108 mEq/L (97-110); GLUCOSE 98 mg/dL (70-100); POTASSIUM 4.1 mEq/L (3.5-5.2); SODIUM 139 mEq/L (134-144)
[2016-11-28 05:17] LABS: ALANINE AMINOTRANSFERASE 31 IU/L (9-52); ALBUMIN 3.6 g/dL (3.5-5.0); ALKALINE PHOSPHATASE 49 IU/L (38-126); ASPARTATE AMINOTRANSFERASE 29 IU/L (14-46); BILIRUBIN,TOTAL 0.5 mg/dL (0.1-1.4); CALCIUM 9.3 mg/dL (8.5-10.4); GLOMERULAR FILTRATION RATE 58; MAGNESIUM 1.8 mg/dL (1.6-2.3); TOTAL PROTEIN 6.3 g/dL (6.3-8.2)
[2016-11-28 05:28] LABS: TROPONIN I < 0.012 ng/mL (0-0.034)
[2016-11-28] MEDS ORDERED: ALBUTEROL 60 PUFFS/8 GM MDI IH PRN (07:51)
[2016-11-28] MEDS ORDERED: traMADol 50 MG TAB PO PRN (07:51)
[2016-11-28] MEDS ORDERED: SUMATRIPTAN SUCCINATE 6 MG SQ PRN (07:51)
[2016-11-28] MEDS ORDERED: ALBUTEROL 200 PUFFS/18 GM MDI IH PRN (07:57)
[2016-11-28] MEDS ORDERED: SUMAtriptan 6 MG/0.5 ML VIAL SC PRN (07:59)
[2016-11-28] MEDS ORDERED: CITALOPRAM 20 MG TAB PO SCH (09:00)
[2016-11-28] MEDS ORDERED: buPROPion SR 150 MG TAB PO SCH (09:00)
[2016-11-28] MEDS ORDERED: NON-FORMULARY NEW DRUG (Citalopram Hydrobromide [Celexa] 40 MG) PO SCH (09:00)
[2016-11-28] MEDS ORDERED: NON-FORMULARY NEW DRUG (Esomeprazole Mag Trihydrate [Nexium] 40 MG) PO SCH (09:00)
[2016-11-28] MEDS ORDERED: PANTOPRAZOLE SODIUM 40 MG TAB PO SCH (09:00)
[2016-11-28] MEDS: RIFAXIMIN 550 MG TAB PO SCH (09:18)
[2016-11-28] MEDS: PANTOPRAZOLE SODIUM 40 MG in NS 100 ML IV SCH (09:18)
--- NOTE | 2016-11-28 13:11 | ECHO ---
[id number] + + [address] : : [place] [address] : : [phone] + + Adult Echocardiographic Report + --------+ :Name: AMBER KAUR JStudy Date: 11/28/2016 07:54 AM : : Hospital Admission Number: [id number] Locat ion: 210: :: 1960 Gender: Female Height: 67 in : :Age: 56 yrs Race: WH Weight: 150 l b : :Reason For Study: Eval EF/EKG changes : : BSA: 1.8 mete rs2 : :History: Takotsubo cardiomyopathy : + --------+ MMode/2D Measurements \T\ Calculations IVSd: 0.75 cm LVIDd: 4.7 cm FS: 44.2 % Ao root diam: 3.2 cm LVPWd: 0.74 cm LVIDs: 2.6 cm EDV(Teich): 101.0 ml LA dimension: 3.0 cm ESV(Teich): 24.8 ml EF(Teich): 75.4 % Normal Measurement Values: + + :LVIDd (3.5-5.7cm) IVSd (0.6-1.1cm) LVPWd (0.6-1.1cm) Aortic Root (2.0-3.7cm)Left Atrium (1.5-4.0cm): :LV Vol(d) (76-115ml) LV Vol(s) (29-48ml) Ejec Fraction (50-65%)PV Danilo (0.6- 1.2m/s) TV Danilo (0.4-1.0m/s) : :MV E [place] (0.8-1.0m/s)MV A [place] (0.3-1.0m/s)LVOT [place] (0.7-1.2m/s) Asc Ao [place] ( 0.9-1.8m/s) : + + Doppler Measurements \T\ Calculations MV E max danilo: 63.7 cm/sec Ao V2 max: 127.6 cm/sec MV A max danilo: 71.1 cm/sec Ao max P.5 mmHg MV E/A: 0.90 Left Ventricle The left ventricle is normal in size. There is normal left ventricular wall thickness. Left ventricular systolic function is normal. Ejection Fraction = 60-65%. No regional wall motion abnormalities noted. Right Ventricle The right ventricle is normal in size and function. Atria The left atrial size is normal. Right atrium not well visualized. The interatrial septum is intact with no evidence for an atrial septal defect. Mitral Valve The mitral valve is normal in structure and function. There is no evidence of mitral valve prolapse. There is no mitral valve stenosis. Tricuspid Valve The tricuspid valve is not well visualized. Aortic Valve The aortic valve opens well. There is no aortic stenosis. There is no aortic insufficiency. Pulmonic Valve The pulmonic valve is not well visualized. There is no pulmonic valvular regurgitation. Great Vessels The aortic root is normal size. Pericardium/Pleural There is no pericardial effusion. Conclusion A complete two-dimensional transthoracic echocardiogram was performed (2D, M-mode, Doppler and color flow Doppler). The study was technically limited. Left ventricular systolic function is normal. Ejection Fraction = 60-65%. Final Reading Physician: Israel Ramirez signed on 11/28/2016 01:10 PM Ordering Physician: Bigg Eastman Performed By: Yaneth Sampson RDCS
--- NOTE | 2016-11-28 14:00 | PDCARPN ---
Cardiology Progress Note Chief Complaint: Abdominal discomfort/nausea/vomiting Assessment/Plan: Assessment: Belem is a 56 y/o F who was admitted on 11/13 with a new takasubo CMP and mildly depressed EF of 50%. A angiogram preformed by Dr. Aguirre on 11/14 showed normal coronaries. She was d/c home on Lisinopril. A BB was held secondary to a history of asthma. A GI work up was also done and she was started on Xifaxan but she was unable to get the medication secondary to insurance issues. She presented back to the hospital on 11/27 with acute vomiting, nausea, and abdominal pain. Her troponins are negative x3 and echo shows preserved EF of 60 %. Her EKG is drastically abnormal with new T wave changes. She denies any CP. Plan: Takasubo CMP with improved LV function by echo. Her EKG has changed with deep diffuse T wave inversion. This is likely due to her CMP but acute gallbladder disease could also cause these changes. Recommended medical management for her CMP with Lisinopril. A BB was not started secondary to a history of asthma. Will repeat a EKG today. LUCRECIA- resolved Abdominal discomfort 11/28/16 15:47 Subjective: She denies any CP or SOB. She presented with N/V and abdominal discomfort which has resolved. Objective: Vital Signs (8 Hrs) Temp Pulse Resp BP Pulse Ox 11/28/16 12:15 37.1 C 82 17 137/90 H 96 11/28/16 07:38 36.8 C 77 16 118/88 H 92 Intake/Output (24 Hrs) 11/27/16 11/28/16 11/29/16 05:59 05:59 05:59 Intake Total 1225 Balance 1225 Intake: Oral (ml) 100 IV Intake (ml) 125 IV Infused (ml) 1000 Other: Weight 68.039 kg 66.2 kg Intake Quantity Yes Sufficient Number of Voids Toilet 2 Result Diagrams: 11/28/16 04:02 11/28/16 04:02 Cardiac Labs: Cardiac Lab Results (72 Hrs) 11/28/16 11/27/16 04:02 23:20 Troponin I < 0.012 < 0.012 EKG: NSR with diffuse T wave inversion Telemetry: NSR Echocardiogram: Preserved LV function. - Physical Exam Constitutional: WDWN Cardiovascular: regular rate and rhythm, no murmurs, no rubs, no gallops Peripheral Pulses: 2+: dorsalis-pedis (R), dorsalis-pedis (L) Respiratory: clear to auscultate bilat, no crackles, no wheezes Skin: no edema Neurologic: AAOx3 ICD10 Worksheet Patient Problems: Problems Problem Status Onset Abnormal EKG Acute Dehydration Acute Nausea & vomiting Acute Abdominal pain Acute Elevated troponin Acute
[2016-11-28] MEDS ORDERED: KETOROLAC 15 MG/1 ML SDV IVP ONE (14:40)
--- NOTE | 2016-11-28 15:55 | CPEKG ---
Heart Rate: 87 RR Interval: 690 P-R Interval: 156 QRSD Interval: 100 QT Interval: 444 QTC Interval: 535 P [place]: -39 QRS [place]: -23 T Wave [place]: 263 EKG Severity - ABNORMAL ECG - EKG Impression: SINUS RHYTHM EKG Impression: BORDERLINE LEFT AXIS DEVIATION EKG Impression: ABNORMAL T, PROBABLE ISCHEMIA, WIDESPREAD EKG Impression: PROLONGED QT INTERVAL Electronically Signed By: Josué Henning 28-Nov-2016 21:06:37
[2016-11-28 16:10] VITALS: BP 131/87; PULSE 92; RESP 16; TEMP 99; O2SAT 92
--- NOTE | 2016-11-28 16:23 | PDDCSUM ---
Discharge Summary Discharge Summary: DISCHARGE SUMMARY FOLLOW-UP ITEMS: Reassess management of GI symptoms, consider outpatient EGD DATE OF ADMISSION: 11/27/2016 DATE OF DISCHARGE: 11/28/2016 DISCHARGE DIAGNOSES: 1. Acute on chronic nausea and vomiting 2. Suspected irritable bowel syndrome 3. Takotsubo nonischemic cardiomyopathy 4. Acute kidney injury CONSULTATIONS: Cardiology PROCEDURES / IMAGING: Echocardiogram demonstrating resolution and improvement of previously noted wall motion abnormalities CHIEF COMPLAINT: Acute nausea vomiting and abdominal pain SUBJECTIVE: Patient is having some nausea at time of discharge, she is tolerating an oral diet PHYSICAL EXAM ON DISCHARGE: Systolic blood pressure is 130, heart rate 80, afebrile overnight, alert awake oriented x3, no apparent distress, pain level 0/10 LABS ON DISCHARGE: Creatinine 1, potassium 4.1, troponin negative x3, lipase normal, liver panel normal, white blood cell count 9400, hemoglobin 11.3 HOSPITAL COURSE BY PROBLEM: 1. Acute on chronic nausea vomiting. Most likely secondary to poorly controlled irritable bowel syndrome with concomitant abdominal pain. She had a stress response resulting in significant leukocytosis, and she requires supportive care with IV pain and antiemetic medications. She also received IV fluids. She was transitioned over to oral supportive care with oral Bentyl and Phenergan. Anticipate the symptoms will continue to recur, and she will require a chronic management strategy, which will be more effective once she has returned to her home medical environment. 2. Suspected irritable bowel syndrome. This is the patient's 2nd presentation for uncontrolled abdominal symptoms in the setting of a stressful trip to celebrate her mother's birthday. The patient did not have any abnormalities on her most recent hospitalization which included abdominal imaging. She was seen in consultation by Gastroenterology at that time. They concluded that her symptoms were most likely secondary to irritable bowel syndrome in the setting of known fibromyalgia. Consequently, they recommended supportive care as well as aggressive outpatient management with antispasmodics, and potentially rifaxamin. The patient's insurance declined to fill this medication without prior authorization. Consequently, the patient has been managed on Bentyl as well as antiemetics. She will be discharged home on these medications, and would recommend close follow up with her primary care provider as well as outpatient therapy. She may receive an EGD for completeness sake, but we do not see any emergent indications to perform a scope at this time. 3. Takotsubo nonischemic cardiomyopathy. The patient was observed overnight on telemetry given conduction changes on her presenting EKG. These include diffuse T-wave inversions. The patient underwent an echocardiogram which demonstrated complete resolution of her previously diagnosed takotsubo cardiomyopathy. Her ejection fraction is 60-65%, with no focal wall motion abnormalities. She will continue on lisinopril 2.5 mg daily and follow up with her primary care provider. 4. Acute kidney injury. Most likely secondary to vomiting and hypovolemia, in the setting of above. She received IV normal saline and her serum creatinine level returned to baseline. We held her PAM inhibitor during that time, and can be re-initiated tomorrow. DISCHARGE MEDICATIONS: Please see official discharge medication reconciliation sheet in chart , Bentyl as needed 20 mg, Phenergan as needed 12.5-25 mg. DISCHARGE INSTRUCTIONS: Please follow up with her primary care provider as soon as possible upon returning to [place].
[2016-11-28] MEDS ORDERED: ROTIGOTINE TD SCH (18:00)
== END 2016-11-28 17:40 | disposition home or self-care (01) ==
LOC: F2W 20:08
PROVIDERS: ADMIT Internal Medicine; ATTEND Internal Medicine
DX: R11.2 Nausea with vomiting, unspecified (principal); I51.81 Takotsubo syndrome; N17.9 Acute kidney failure, unspecified
CPT/HCPCS: 93005; 93306; G0378; 96374; J1170; J1885; J2060; J2405

== ENCOUNTER 2018-06-29 20:58 | Inpatient (IN) | payer MEDICAID ==
--- NOTE | 2018-06-29 21:48 | EDPHY ---
General - History Smoking Status: Never smoked Time Seen by Provider: 06/29/18 21:48 Narrative: CLINICAL IMPRESSION: Shortness of breath, elevated troponin, nausea, vomiting and abdominal pain ASSESSMENT/PLAN: Patient is a 58-year-old female with a significant history of takotsubo cardiomyopathy, depression, anxiety and fibromyalgia who presents to the emergency department with complaints of shortness of breath, nausea, vomiting abdominal pain. Patient is 1 week postop rotator cuff repair, has had an uncomplicated surgery up until this morning when she had a sudden onset of symptoms. Patient is afebrile, she is tachycardic and very uncomfortable appearing. Her lungs were clear to auscultation, her abdomen was soft, tender in the epigastrium with mild voluntary guarding. An ECG was immediately obtained which revealed inferior ST depression, troponin elevated at 0.21. Dr. Robison consulted and evaluated this patient in the emergency department, he did not feel that this was ACS. Chest x-ray negative for any acute findings. Dimer elevated at 0.8. CBC revealed leukocytosis of 14.5, with concerns for postoperative pulmonary embolism proceeded with CT angiogram. CT chest revealed ill-defined areas of ground-glass opacity in the anterior left upper lobe suspicious for developing infection, no evidence of pulmonary embolus. Patient conservatively treated with Rocephin and azithromycin, procalcitonin pending at this time. CT abdomen and pelvis was unremarkable. Patient was given aspirin, IV fluids and Dilaudid with a marked improvement of her symptoms in the emergency department. The patient will be admitted to PCU for further observation and management with likely plans for echo in the morning per Dr. Robison. On repeat examination and prior to transfer to the floor the patient is well-appearing, she reports that she is feeling much better. She remained hemodynamically stable and on a cardiac technician. DIFFERENTIAL DX: Shortness of breath including but not limited to pulmonary infectious process, COPD, asthma, pulmonary embolus and congestive heart failure. ED COURSE: 2226: Discussed with Dr. Robison., will evaluate this patient. 2230: Dr. Robison evaluted this patient, he will follow. Plan for Echo in am. 2257: On repeat exam the patient is still uncomfortable appearing, her heart rate is 110. Her abdomen is soft however tender with mild voluntary guarding in the epigastrium. CHIEF COMPLAINT: Nausea, vomiting, shortness of breath, abdominal pain HPI: Patient is a 58-year-old female with a significant history of takotsubo who is 1 week postop right rotator cuff repair who presents to the Emergency Department with sudden-onset shortness of breath, nausea, vomiting and abdominal pain. Patient reports she has had an uncomplicated postoperative course, went to bed feeling fine last night. Woke up this morning feeling nauseous and had multiple episodes of emesis. She is experiencing some upper abdominal pain as well as progressive shortness of breath throughout the day. She denies any fevers or chills, her appetite has been low secondary to the nausea and vomiting. She denies any chest pain. She does report a similar episode in the past when she was diagnosed with takotsubo. Denies any runny nose, congestion or cough. She has had no hematemesis. She denies any urinary symptoms to include dysuria, hematuria or frequency. Bowel movements have been normal and regular. PMH: Pertinent Past Surgical History: Right rotator cuff surgery, right knee surgery Family History: Noncontributory Social History: Denies illicit drug use or smoking REVIEW OF SYSTEMS: All other systems negative Constitutional: No fever, no chills, appetite change. Eyes: No discharge, vision change ENT: No sore throat, congestion, ear pain. Cardiovascular: No chest pain, no palpitations. Respiratory: Shortness of breath. Gastrointestinal: Abdominal pain, nausea and vomiting. Genitourinary: No hematuria, dysuria, flank pain, pelvic pain Musculoskeletal: No back pain, joint swelling, joint pain, myalgias. Skin: No rashes, color change. Neurological: No headache, dizziness, weakness. PHYSICAL EXAM: General Appearance: Patient is in moderate distress on arrival, very uncomfortable appearing and tachypneic. HENT: Normocephalic, atraumatic. Bilateral external ears are normal. Bilateral tympanic membranes are normal with pearly cook reflex. Nares are clear, mucosa is pink however mildly dry. Oropharynx is clear, uvula is midline. There is no tonsillar enlargement or exudate. The dentition is normal. Eyes: PERRLA, no acute vision change, nystagmus, swelling, discharge, pain or photosensitivity. Conjunctiva pink, no pallor or injection. Neck: Supple, nontender, no lymphadenopathy, no midline pain, FROM, no meningismus. Respiratory: Tachypneic, There are no retractions, lungs are clear to auscultation. Cardiac: Mildly tachycardic, no murmurs or gallops. Gastrointestinal: Patient's abdomen is soft and nontender. She has tenderness to palpation supraumbilical region into epigastrium with mild voluntary guarding. Bowel sounds are present, there are no masses or hernias appreciated. Neurological: Alert and oriented x 3, CN 2-12 grossly intact, normal gait no ataxia, DTR's intact, normal sensation and strength. Skin: Warm, dry, no rashes, no nodules on palpation. Musculoskeletal: Extremities are symmetrical, full range of motion, no tenderness, deformity, swelling, or erythema. Psychiatric: Patient is oriented X 3, there is no agitation. MEDICAL DECISION MAKING: Patient was seen independently. Secondary supervising physician at time of evaluation was Dr. Feng. Diagnosis: Shortness of breath, elevated troponin, nausea, vomiting and abdominal pain. New, requires workup Summary: See Assessment and Plan for summary of ED visit Clinical lab tests: ordered / reviewed. Independent visualization of images, tracing, or specimens: Yes. Decision to obtain medical records or history from someone other than the patient: No Review / Summarize previous medical records: Yes Discussed patient with another provider: Yes, Dr. Feng, Dr. Robison and Dr. Muro Patient Progress: Stable, admit. (Luanne Figueroa) PHYSICIAN DOCUMENTATION: The patient was evaluated and managed by the Physician Hr Business Partner. My co- signature indicates that I have reviewed this chart and I agree with the findings and plan of care as documented. I am the secondary supervising physician. (Marya Feng) - Diagnostics Imaging Results: Imaging Impressions Chest X-Ray 03/08/19 21:53 Impression: Stable hyperexpansion suggesting COPD or emphysema with no acute findings. - Objective Vital Signs: Initial Vital Signs Temperature (C) 37.9 C 06/29/18 21:13 Heart Rate 101 H 06/29/18 21:13 Respiratory Rate 22 H 06/29/18 21:13 Blood Pressure 154/103 H 06/29/18 21:13 O2 Sat (%) 99 06/29/18 21:13 O2 Delivery Mode Room Air Allergies/Adverse Reactions: Penicillins Allergy (Verified 11/14/16 09:53) Rash/Throat swelling Home Medications: Medication Instructions Recorded buPROPion SR [Wellbutrin 150mg SR 150 mg PO BID 11/13/16 (*)] Albuterol [Proventil Inhaler HFA 1 - 2 puffs IH DAILY PRN 11/14/16 (*)] Citalopram Hydrobromide [Celexa] 40 mg PO DAILY 11/14/16 Rotigotine [Neupro] 1 each TD DAILY18 11/14/16 Sumatriptan Succinate 6 mg SQ DAILY PRN 11/14/16 rOPINIRole HCL [Requip 2mg (*)] 2 mg PO BID@,14 11/14/16 traMADol [Ultram 50 mg (*)] 50 mg PO Q8HRS PRN 11/14/16 valACYclovir [Valtrex (*)] 500 mg PO HS 11/14/16 Acetaminophen [Tylenol 325mg (*)] 650 mg PO Q4HRS PRN #0 tab 11/17/16 Laboratory Results: Laboratory Results 06/29/18 21:55 06/29/18 21:55 06/30/18 06/29/18 06/29/18 00:00 22:04 21:55 WBC RBC Hgb Hct MCV MCH MCHC RDW Plt Count MPV Neut % (Auto) Lymph % (Auto) [place] % (Auto) Eos % (Auto) Baso % (Auto) Nucleat RBC Rel Count Absolute Neuts (auto) Absolute Lymphs (auto) Absolute Monos (auto) Absolute Eos (auto) Absolute Basos (auto) Absolute Nucleated RBC Immature Gran % Immature Gran # D-Dimer Sodium 138 mEq/L mEq/L (135-145) Potassium 4.3 mEq/L mEq/L (3.5-5.2) Chloride 104 mEq/L mEq/L (97-110) Carbon Dioxide 19 mEq/l L mEq/l (22-31) Anion Gap 15 mEq/L H mEq/L (6-14) BUN 12 mg/dL mg/dL (7-23) Creatinine 0.9 mg/dL mg/dL (0.6-1.0) Estimated GFR > 60 Glucose 152 mg/dL H mg/dL (70-100) Calcium 10.5 mg/dL H mg/dL (8.5-10.4) Total Bilirubin 0.9 mg/dL mg/dL (0.1-1.4) Conjugated Bilirubin 0.4 mg/dL mg/dL (0.0-0.5) Unconjugated Bilirubin 0.5 mg/dL mg/dL (0.0-1.1) AST 40 IU/L IU/L (14-46) ALT 49 IU/L IU/L (9-52) Alkaline Phosphatase 101 IU/L IU/L (38-126) POC Troponin I 0.21 ng/mL H ng/mL (0.00-0.08) Total Protein 8.4 g/dL H g/dL (6.3-8.2) Albumin 5.1 g/dL H g/dL (3.5-5.0) Lipase 82 IU/L IU/L (23-300) Procalcitonin 0.03 ng/mL ng/mL (0.02-0.10) 06/29/18 06/29/18 21:55 21:55 WBC 14.46 10^3/uL H 10^3/uL (3.80-9.50) RBC 4.65 10^6/uL 10^6/uL (4.18-5.33) Hgb 15.0 g/dL g/dL (12.6-16.3) Hct 43.6 % % (38.0-47.0) MCV 93.8 fL fL (81.5-99.8) MCH 32.3 pg pg (27.9-34.1) MCHC 34.4 g/dL g/dL (32.4-36.7) RDW 13.2 % % (11.5-15.2) Plt Count 366 10^3/uL 10^3/uL (150-400) MPV 9.6 fL fL (8.7-11.7) Neut % (Auto) 87.3 % H % (39.3-74.2) Lymph % (Auto) 8.4 % L % (15.0-45.0) [place] % (Auto) 3.1 % L % (4.5-13.0) Eos % (Auto) 0.3 % L % (0.6-7.6) Baso % (Auto) 0.3 % % (0.3-1.7) Nucleat RBC Rel Count 0.0 % % (0.0-0.2) Absolute Neuts (auto) 12.62 10^3/uL H 10^3/uL (1.70-6.50) Absolute Lymphs (auto) 1.21 10^3/uL 10^3/uL (1.00-3.00) Absolute Monos (auto) 0.45 10^3/uL 10^3/uL (0.30-0.80) Absolute Eos (auto) 0.04 10^3/uL 10^3/uL (0.03-0.40) Absolute Basos (auto) 0.05 10^3/uL 10^3/uL (0.02-0.10) Absolute Nucleated RBC 0.00 10^3/uL 10^3/uL (0-0.01) Immature Gran % 0.6 % % (0.0-1.1) Immature Gran # 0.09 10^3/uL 10^3/uL (0.00-0.10) D-Dimer 0.89 ug/mLFEU H ug/mLFEU (0.00-0.50) Sodium Potassium Chloride Carbon Dioxide Anion Gap BUN Creatinine Estimated GFR Glucose Calcium Total Bilirubin Conjugated Bilirubin Unconjugated Bilirubin AST ALT Alkaline Phosphatase POC Troponin I Total Protein Albumin Lipase Procalcitonin Medications Given: Hydromorphone HCl (Dilaudid) 0.4 mg IVP Q4HRS PRN PRN Reason: breakthrough pain Stop: 07/10/18 05:21 Last Admin: 06/30/18 05:36 Dose: 0.4 mg Ondansetron HCl (Zofran) 4 mg IVP Q4 PRN PRN Reason: Nausea/Vomiting, Can't Take PO Stop: 12/26/18 21:54 Last Admin: 06/29/18 22:42 Dose: 4 mg Oxycodone HCl (Oxycodone Ir) 5 - 10 mg PO Q4HRS PRN PRN Reason: Pain, Severe Able to Take PO Stop: 07/10/18 03:29 Last Admin: 06/30/18 03:42 Dose: 10 mg Discontinued Medications Aspirin (Aspirin) 324 mg PO EDNOW ONE Stop: 06/29/18 22:17 Last Admin: 06/29/18 22:42 Dose: 324 mg Hydromorphone HCl (Dilaudid) 0.5 mg IVP EDNOW ONE Stop: 06/29/18 21:56 Last Admin: 06/29/18 22:42 Dose: 0.5 mg Hydromorphone HCl (Dilaudid) 0.5 mg IVP EDNOW ONE Stop: 06/29/18 22:56 Last Admin: 06/29/18 23:30 Dose: 0.5 mg Sodium Chloride (Ns) 1,000 mls @ 0 mls/hr IV ONCE ONE PRN Reason: Wide Open Stop: 06/29/18 21:56 Last Admin: 06/29/18 22:42 Dose: 1,000 mls Azithromycin 500 mg/ Sodium (Chloride) 255 mls @ 255 mls/hr IV EDNOW ONE PRN Reason: Protocol Stop: 06/30/18 01:16 Last Admin: 06/30/18 00:49 Dose: 255 mls Ceftriaxone Sodium/Dextrose (Rocephin 1 Gm (Premix)) 50 mls @ 100 mls/hr IV EDNOW ONE PRN Reason: Protocol Stop: 06/30/18 00:45 Last Admin: 06/30/18 00:28 Dose: 50 mls Point of Care Test Results: Chemistry 06/29/18 22:04 POC Troponin I 0.21 ng/mL H ng/mL (0.00-0.08) Departure - Departure Disposition: [facility]
[2018-06-29] MEDS ORDERED: HYDROmorphONE/DILAUDID 2 MG/ML INJ IVP ONE ×2 (21:55→22:55)
[2018-06-29] MEDS ORDERED: NS 1,000 ML IV ONE (21:55)
[2018-06-29 22:14] LABS: PLATELET COUNT 366 10^3/uL (150-400)
[2018-06-29] MEDS ORDERED: ASPIRIN 81 MG CHEWABLE TAB PO ONE (22:16)
[2018-06-29] MEDS: ONDANSETRON 4 MG/2 ML VIAL IVP PRN (22:42)
[2018-06-29] MEDS ORDERED: IOPAMIDOL (ISOVUE 370) 100 ML BTL IV ONE (22:48)
--- NOTE | 2018-06-30 00:06 | GHP ---
[f rep st] HISTORY AND PHYSICAL DATE OF ADMISSION: 06/29/2018 I am asked to visit with the patient josé. She is a 58-year-old female with history of Takotsubo cardiomyopathy diagnosed by angiogram in October 2016, who was in her usual state of good health until e elsi this morning when she developed the acute onset of nausea and vomiting. Symptoms persisted al l day. They were associated with midepigastric discomfort, and she came to the emergency department for further evaluation. EKG showed nonspecific inferior ST depression. This was associated with a slightly elevated troponin . I am asked to comment. The patient's past medical history is quite complicated. She has a history of recurrent nausea, vomi ting, and abdominal pain. She was last admitted here on November 27, 2016, one week after her Takotsubo event. The patient has a history of underlying anxiety. She has a history of hypertension. She sousa s a history of COPD. ALLERGIES: Penicillin. HOME MEDICATIONS: Include 500 mg at h.s. She is on Ultram 50 mg q.8 hours for pain. She is on Requip 2 mg p.o. b.i.d. She is on Wellbutrin 150 mg SR p.o. b.i.d. She is on sumatriptan 6 m g subcu daily. She is on the rotigotine, which is Neupro, 1 transdermal daily. She is on Celexa 40 mg daily. She is on albuterol inhaler as well as acetaminophen. PAST MEDICAL HISTORY: Also includes fibromyalgia. She has a history of acute kidney injury that had resolved. FAMILY HISTORY: Unremarkable. SURGICAL HISTORY: Unremarkable. GENERAL REVIEW OF SYSTEMS: Negative for fever or chills. She has had nausea and vomiting, abdominal pain. She has had no diarrhea or constipation. She denies dysuria. She has had no bruising or ble eding. She denies hematemesis, melena, or hemoptysis. PHYSICAL EXAMINATION: This is an ill-appearing female, curled up in bed. Respiratory rate is 18 and mildly labored. Her current blood pressure is 164/124. Heart rate is 98. She is saturating 99%. Temperature is 36.9. She has no conjunctival injection. Oropharynx shows dry mucous membranes. Nec k revealed no JVP. Her chest is clear. Palpation of the anterior chest wall reveals a summation gal lop. Palpation of the belly revealed epigastric tenderness to palpation. There is no rebound or gua rding. She is tympanitic. Femoral pulses are +1. Dorsalis pedis pulses are +1. Radial pulses are +1 and somewhat thready. She has ecchymoses on the forearms. She has no rash. Neurologically, she is alert and responsive. There is facial symmetry. She is moving extremities, upper and lower, well . DATABASE: EKG shows sinus rhythm at 94 beats per minute. There is first-degree AV block with a LA i nterval. There is nonspecific inferior ST depression in II, III, and aVF. There are anterior Q wave s in V1 and V2. LABORATORY DATA: Remarkable for white count that is elevated at 14.46. Her hemoglobin is 15 with a hematocrit of 43. Her serum sodium is 138 with a potassium of 4.3. Her carbon dioxide is 19 with an elevated anion gap of 15. Her BUN is 12 with a creatinine of 0.9. Her glucose is elevated at 152. Her troponin is mildly elevated at 0.21. Protein is 8.4 with an albumin of 5.1. D-dimer is markedl y elevated at 0.89. IMPRESSION: A 58-year-old female with nausea, vomiting, midepigastric pain associated with an elevat ed white count, elevated anion gap, with increased respiratory rate. Concern for ongoing underlying infection. Elevated D-dimer clearly concerning. EKG changes are consistent with abdominal process. I cannot exclude occult ischemia. I did review her previous coronary angiogram, which showed a nond ominant right coronary. She has a very large circumflex artery that had no focal stenosis just over a year ago. Her left anterior descending artery was tortuous without focal stenosis. This was at th e time of Takotsubo cardiomyopathy. PLAN: Recommend admission to the hospital. Continued evaluation for source of white count, elevated respiratory rate and abdominal pain in the setting of nausea and vomiting. We will follow her tropo nins. Plan for an echocardiogram in the morning. At this point, no indications for a diagnostic ang iogram are suggested. I would aggressively treat her blood pressure with observation in the hospital . We will be happy to follow her along with you. Questions were answered with her and her family. /[id number]/MODL
[2018-06-30] MEDS ORDERED: AZITHROMYCIN IV 500 MG in NS 250 ML IV ONE (00:17)
[2018-06-30] MEDS ORDERED: ONDANSETRON 4 MG/2 ML VIAL IVP PRN (00:28)
--- NOTE | 2018-06-30 01:03 | PDGENHP ---
History and Physical - Chief Complaint Nausea, SOB - History of Present Illness 58 yo F w/ hx of Takotsubo's CM presents with nausea, vomiting, and SOB. The patient tells me her symptoms have been present for about two days. She has been most troubled by nausea and vomiting. Her shortness of breath has been mild. She denies cough, fever, and chills. Upon arrival in the ED work-up as notable for abnormal ECG and indeterminate troponin. CTA of C/A/P demonstrated only CHRISTA ground glass opacities. She was evaluated by Dr. Robison of cardiology who did not feel her symptoms were consistent with an acute coronary syndrome. She is being admitted for further work-up. During my evaluation the patient is comfortable and in no acute distress. She is breathing comfortably and oxygenating well on room air. Of note, she underwent L rotator cuff surgery on 06/19. Case discussed with ED MISSY Figueroa; records reviewed and summarized above. History Information - Allergies/Home Medication List Allergies/Adverse Reactions: Penicillins Allergy (Verified 11/14/16 09:53) Rash/Throat swelling Home Medications: buPROPion SR [Wellbutrin 150mg SR (*)] 150 mg PO BID 11/13/16 [Last Taken ] Albuterol [Proventil Inhaler HFA (*)] 1 - 2 puffs IH DAILY PRN 11/14/16 [Last Taken Unknown] Citalopram Hydrobromide [Celexa] 40 mg PO DAILY 11/14/16 [Last Taken 11/27/16] Rotigotine [Neupro] 1 each TD DAILY18 11/14/16 [Last Taken 11/26/16] Sumatriptan Succinate 6 mg SQ DAILY PRN 11/14/16 [Last Taken 11/20/16] rOPINIRole HCL [Requip 2mg (*)] 2 mg PO BID@,14 11/14/16 [Last Taken 11/27/16] traMADol [Ultram 50 mg (*)] 50 mg PO Q8HRS PRN 11/14/16 [Last Taken 11/27/16] valACYclovir [Valtrex (*)] 500 mg PO HS 11/14/16 [Last Taken 11/26/16] I have personally reviewed and updated: family history, medical history - Past Medical History asthma (with nearly daily use of rescue inhaler, inhaled steroids, never been intubated), fibromyalgia (and restless legs syndrome) Additional medical history: Rx-induced pancreatitis approx 2 years ago. Suspected irritable bowel syndrome. Takasubo NICM w/ EF 50% and clean cath 2017 - Surgical History Reports: cholecystectomy Additional surgical history: numerous orthopedic surgeries on knees, rotator cuffs, ankle - Family History Positive for: stroke Additional family history: no premature CAD or VTE - Social History Smoking Status: Never smoked Additional social history: lives in [place], week-long roadtrip to [place] Review of Systems Review of Systems: ROS: 10pt was reviewed & negative except for what was stated in HPI & below Physical Exam Physical Exam: Temp Pulse Resp BP Pulse Ox 36.9 C 97 22 H 90/64 L 95 06/29/18 22:35 06/30/18 00:19 06/29/18 21:13 06/30/18 00:19 06/30/18 00:19 Constitutional: no apparent distress, not in pain Eyes: PERRL, EOMI Ears, Nose, Mouth, Throat: moist mucous membranes, no oral mucosal ulcers Cardiovascular: regular rate and rhythym, no murmur, rub, or gallop Respiratory: no respiratory distress, clear to auscultation Gastrointestinal: normoactive bowel sounds, soft, non-tender abdomen Skin: warm, normal color Musculoskeletal: full muscle strength, no muscle tenderness Neurologic: AAOx3, CN II-XII Intact Psychiatric: interacting appropriately Lab Data & Imaging Review 06/29/18 21:55 06/29/18 21:55 WBC 14.46 10^3/uL (3.80-9.50) H 06/29/18 21:55 RBC 4.65 10^6/uL (4.18-5.33) 06/29/18 21:55 Hgb 15.0 g/dL (12.6-16.3) 06/29/18 21:55 Hct 43.6 % (38.0-47.0) 06/29/18 21:55 MCV 93.8 fL (81.5-99.8) 06/29/18 21:55 MCH 32.3 pg (27.9-34.1) 06/29/18 21:55 MCHC 34.4 g/dL (32.4-36.7) 06/29/18 21:55 RDW 13.2 % (11.5-15.2) 06/29/18 21:55 Plt Count 366 10^3/uL (150-400) 06/29/18 21:55 MPV 9.6 fL (8.7-11.7) 06/29/18 21:55 Neut % (Auto) 87.3 % (39.3-74.2) H 06/29/18 21:55 Lymph % (Auto) 8.4 % (15.0-45.0) L 06/29/18 21:55 [place] % (Auto) 3.1 % (4.5-13.0) L 06/29/18 21:55 Eos % (Auto) 0.3 % (0.6-7.6) L 06/29/18 21:55 Baso % (Auto) 0.3 % (0.3-1.7) 06/29/18 21:55 Nucleat RBC Rel Count 0.0 % (0.0-0.2) 06/29/18 21:55 Absolute Neuts (auto) 12.62 10^3/uL (1.70-6.50) H 06/29/18 21:55 Absolute Lymphs (auto) 1.21 10^3/uL (1.00-3.00) 06/29/18 21:55 Absolute Monos (auto) 0.45 10^3/uL (0.30-0.80) 06/29/18 21:55 Absolute Eos (auto) 0.04 10^3/uL (0.03-0.40) 06/29/18 21:55 Absolute Basos (auto) 0.05 10^3/uL (0.02-0.10) 06/29/18 21:55 Absolute Nucleated RBC 0.00 10^3/uL (0-0.01) 06/29/18 21:55 Immature Gran % 0.6 % (0.0-1.1) 06/29/18 21:55 Immature Gran # 0.09 10^3/uL (0.00-0.10) 06/29/18 21:55 D-Dimer 0.89 ug/mLFEU (0.00-0.50) H 06/29/18 21:55 Sodium 138 mEq/L (135-145) 06/29/18 21:55 Potassium 4.3 mEq/L (3.5-5.2) 06/29/18 21:55 Chloride 104 mEq/L (97-110) 06/29/18 21:55 Carbon Dioxide 19 mEq/l (22-31) L 06/29/18 21:55 Anion Gap 15 mEq/L (6-14) H 06/29/18 21:55 BUN 12 mg/dL (7-23) 06/29/18 21:55 Creatinine 0.9 mg/dL (0.6-1.0) 06/29/18 21:55 Estimated GFR > 60 06/29/18 21:55 Glucose 152 mg/dL (70-100) H 06/29/18 21:55 Calcium 10.5 mg/dL (8.5-10.4) H 06/29/18 21:55 Total Bilirubin 0.9 mg/dL (0.1-1.4) 06/29/18 21:55 Conjugated Bilirubin 0.4 mg/dL (0.0-0.5) 06/29/18 21:55 Unconjugated Bilirubin 0.5 mg/dL (0.0-1.1) 06/29/18 21:55 AST 40 IU/L (14-46) 06/29/18 21:55 ALT 49 IU/L (9-52) 06/29/18 21:55 Alkaline Phosphatase 101 IU/L (38-126) 06/29/18 21:55 POC Troponin I 0.21 ng/mL (0.00-0.08) H 06/29/18 22:04 Total Protein 8.4 g/dL (6.3-8.2) H 06/29/18 21:55 Albumin 5.1 g/dL (3.5-5.0) H 06/29/18 21:55 Lipase 82 IU/L (23-300) 06/29/18 21:55 Procalcitonin 0.03 ng/mL (0.02-0.10) 06/30/18 00:00 Imaging Review: Imaging Impressions Chest X-Ray 06/29/18 21:53 Impression: Stable hyperexpansion suggesting COPD or emphysema with no acute findings. Visualized and Interpreted EKG results: Yes EKG Interpretation: Positive for: normal sinsus rhythm, ST depression (II, III, aVF, V4) Assessment & Plan Assessment: 58 yo F w/ hx of Takotsubo's CM presents with nausea and vomiting, found to have abnormal ECG and indeterminate troponin. Plan: 1. Nausea, vomiting - Unclear etiology; present for [address] of her abdomen and pelvis was unremarkable on admission. Possibly this represents atypical ACS symptoms but seems less likely. - Admit for observation - Anti-emetics PRN - Clear liquid diet, ADAT - GI PCR if diarrhea develops 2. Indeterminate troponin - Troponin 0.21 on admission; ECG (personally reviewed /interpreted) w/ ST depression's in II, III, aVF, and V4. She had a cardiac cath in 2017 that revealed normal coronary arteries. She does have a history of Takotsubo's, which may explain these findings. She has been chest pain free throughout. - Monitor on telemetry - Trend cardiac enzymes - Echocardiogram ordered - Cardiology (Dr. Robison) following 3. CHRISTA opacities - Noted on CT in the setting of mild shortness of breath. She denies cough or fever and she is not hypoxic. I feel pneumonia is possible but not certain. - S/p CTX/Azithro in the ED - Blood cultures ordered - Will hold off on further antibiotics, restart if infectious symptoms arise - Procalcitonin ordered 4. Asthma - Mild, intermittent; treated with albuterol PRN only as outpatient. She does not have signs of acute exacerbation at this time. - Albuterol PRN Diet - Clears, ADAT Code - Full Ppx - LMWH Dispo - Admit under observation status
[2018-06-30] MEDS ORDERED: PROMETHAZINE HCL 25 MG/ML INJ IVP PRN (01:06)
[2018-06-30] MEDS ORDERED: ALBUTEROL 3 ML DEYVIAL IH PRN (01:13)
[2018-06-30] MEDS: oxyCODONE IR 5 MG TAB PO PRN ×3 (03:42→20:31)
[2018-06-30 05:00] LABS: PLATELET COUNT 296 10^3/uL (150-400)
[2018-06-30] MEDS: HYDROmorphONE/DILAUDID 1 MG/ML INJ IVP PRN ×2 (05:36→09:40)
--- NOTE | 2018-06-30 06:20 | CPEKG ---
Test Reason : OPEN Blood Pressure : / mmHG Vent. Rate : 094 BPM Atrial Rate : 095 BPM P-R Int : 123 ms QRS Dur : 084 ms QT Int : 380 ms P-R-T Axes : -65 -46 092 degrees QTc Int : 476 ms Ectopic atrial rhythm Probable left atrial enlargement Left anterior fascicular block Anteroseptal infarct, age indeterminate Confirmed by Marya Feng ([id number]) on 06/30/2018 6:20:05 AM Referred By: Marya Feng Confirmed By:Marya Feng
[2018-06-30] MEDS: ONDANSETRON 4 MG/2 ML VIAL IVP PRN (09:39)
--- NOTE | 2018-06-30 09:41 | ASMTCMCOM ---
CM Note CM Note Notes: CM reviewed pt's chart for d/c planning. Pt is a 58 y/o female, visiting from [place] following a week long road trip. She has a hx of Tacotsubo cardiomyyopathy, COPD, Fibromyalgia, anxiety and depression. She sought treatment at the ED for 2 days of nausea, vomiting and sob. She was last seen on the unit in 2017. PT/OT have not been ordered. No CM needs currently anticipated given her previous independence, age and level of activity; CM will follow for changes. D/C Plan: Anticipate independent Date Signed: 06/30/2018 09:41 AM Electronically Signed By:Aleida Espinal
--- NOTE | 2018-06-30 10:48 | ECHO ---
[email or web address] [address] Main: [phone] Echocardiography Examination Transthoracic Name: AMBER KAUR MR#: [id number] Study Date: 06/30/2018 Study Time: 08:59 AM Date of : 1960 Age: 58 year(s) Height: 170.2 cm (67 in.) Weight: 52.16 kg (115 lb.) BSA: 1.6 m2 Gender: Female Examination: Echo Indication: Evaluate LV function (hx of Takosubo) Image Quality: Technically Difficult Contrast: Requested by: Jon Robison md BP: / Heart Rate: Rhythm: Indication: Evaluate LV function (hx of Takosubo) Procedure Staff Referring Physician: Vp Strategic Planning: Yaneth Sampson [facility] Reading Physician: Jon Robison MD Requesting Provider: Ordering Physician: Jon Robison MD Indication: Evaluate LV function (hx of Takosubo) Measurements Chambers AV/MV Label Value Normal Value Label Value Normal Value IVSd, 2D 0.9 cm (0.6cm - 1.1cm) MV A Vmax 0.47 m/s LVDd, 2D 4.7 cm (3.9cm - 5.3cm) MV E Vmax 0.93 m/s LVPWd, 2D 1.1 cm MV E/A 1.98 LADs, 2D 2.3 cm (2.7cm - 3.8cm) TV/PV Additional Vessels Label Value Normal Value Label Value Normal Value RA Pressure 5 mmHg AoRoot, MM 3.1 cm (2.2cm - 3.7cm) RVSP 27 mmHg IVC 2.3 cm (1.2cm - 2.3cm) TR Pmax 22 mmHg TR Vmax 2.36 m/s Conclusions Overall Conclusions: Reduced left ventricular systolic function with inferolateral akinesis. Ejection fraction 40-45%. Mild tricuspid regurgitation mild mitral regurgitation with right ventricular systolic pressure 27 mm of mercury. Patient: AMBER KAUR Study Date: 06/30/2018 Page 1 of 2 08:59 AM Findings Left Ventricle: LV inferior/inferoseptal and basal/mid inferolateral lizarraga appear akinetic. EF estimate is 40-45%.. Left ventricle is normal in size. Moderately reduced systolic left ventricular function. Right Ventricle: Normal size right ventricle. Left Atrium: The left atrium is normal in size. Right Atrium: The right atrium is normal in size. Mitral Valve: Mild mitral regurgitation. There is mild mitral thickening. Aortic Valve: Aortic valve opens well.. Tricuspid Valve: Tricuspid valve is poorly visualized. Mild tricuspid regurgitation. Right Ventricular systolic pressure is measured at 27 mmHg. Pulmonic Valve: Pulmonic valve is poorly visualized. Aorta: The aortic root size in M-mode measures 3.1 cm. Aorta Measurements AoRoot, MM is 3.1 cm. Exam Details Procedure Ordered: Echo Procedure Status: Routine study Image Quality: Technically Difficult Facility Location: Cardiac Echo 1 (No Signature Object) Patient: AMBER KAUR Study Date: 06/30/2018 Page 2 of 2 08:59 AM [id number]
[2018-06-30] MEDS ORDERED: NITROGLYCERIN 0.4 MG BTL SL PRN (11:00)
[2018-06-30] MEDS ORDERED: TEMAZEPAM 15 MG CAP PO PRN (11:00)
[2018-06-30] MEDS ORDERED: FAMOTIDINE 20 MG TAB PO ONE (11:00)
[2018-06-30] MEDS ORDERED: DIAZEPAM 5 MG TAB PO ONE (11:00)
--- NOTE | 2018-06-30 11:00 | SOAPPROG ---
SOAP Progress Note Assessment/Plan: Assessment: Problem list: 1. Takotsubo's cardiomyopathy 2. Elevation in troponin associated with abnormal echocardiogram in regional wall motion abnormalities 3. Hypertension 4. Recent orthopedic surgery Procedure: Echocardiogram 06/30/2018 Impression: Clinically improved since yesterday with less nausea vomiting. Troponin still mildly elevated. Echo does show regional wall motion abnormalities of uncertain significance. She has stable hemodynamics with good blood pressure and heart rate. Recommendations: Diagnostic coronary angiogram for tomorrow. Aggressive medical therapy for a cardiomyopathy with reduced LV systolic function. Continued observation on telemetry. 06/30/18 10:57 Subjective: Feeling overall better. Mild nausea this morning. No chest pain, shortness of breath. No PND orthopnea. No palpitations syncope or near syncope. Objective: Medications Generic Name Dose Route Start Last Admin Trade Name Freq PRN Reason Stop Dose Admin Enoxaparin Sodium 40 mg 06/30/18 09:00 Lovenox SC 12/27/18 08:59 DAILY POPEYE Vital Signs Temp Pulse Resp BP Pulse Ox 36.7 C 84 12 89/59 L 92 06/30/18 08:02 06/30/18 08:44 06/30/18 08:02 06/30/18 08:02 06/30/18 08:02 Laboratory Results 06/30/18 03:21 06/30/18 03:21 06/29/18 06/30/18 07/01/18 05:59 05:59 06:59 Intake Total 1750 Balance 1750 ICD10 Worksheet Patient Problems: Problems Problem Status Onset Abdominal pain Acute Elevated troponin Acute Nausea & vomiting Acute Dehydration Acute Abnormal EKG Acute Review of Systems - Review of Systems Constitutional: denies: chills, fever EENTM: no symptoms reported Respiratory: no symptoms reported Cardiac: no symptoms reported Gastrointestinal/Abdominal: nausea, vomiting Genitourinary: no symptoms Musculoskelatal: no symptoms Skin: no symptoms Neurological: no symptoms Hematologic/Lymphatic: no symptoms reported Immunologic/allergic: no symptoms reported
[2018-06-30 11:26] LABS: PLATELET COUNT 280 10^3/uL (150-400)
[2018-06-30] MEDS: ENOXAPARIN 40 MG/0.4 ML SYR SC SCH (11:26)
[2018-06-30 11:40] LABS: PROTIME(PATIENT) 12.8 SEC (12.0-15.0)
[2018-06-30] MEDS ORDERED: SUMAtriptan 6 MG/0.5 ML VIAL SC PRN (13:35)
[2018-06-30] MEDS: ASPIRIN 81 MG CHEWABLE TAB PO SCH (14:05)
--- NOTE | 2018-06-30 14:42 | HOSPPROG ---
Hospitalist Progress Note Assessment/Plan: 58 yo F w/ hx of Takotsubo's CM presents with nausea and vomiting, found to have abnormal ECG and indeterminate troponin. Plan: 1. Nausea, vomiting - Unclear etiology; present for [address] of her abdomen and pelvis was unremarkable on admission. Possibly this represents atypical ACS symptoms but seems less likely. - Anti-emetics PRN - Clear liquid diet, ADAT - GI PCR if diarrhea develops - CT addendum notes suspicion for jejunal pneumatosis intestinalis raising possibility for partial or early SBO, potentially related to adhesion or internal hernia vs incidental finding - Patient tolerating PO this AM, passing gas, and had BM last evening, will continue current management if s/s of SBO arise will make NPO, make NGT if needed, consider surgical consult 2. Indeterminate troponin - Troponin 0.21 on admission; ECG (personally reviewed /interpreted) w/ ST depression's in II, III, aVF, and V4. She had a cardiac cath in 2017 that revealed normal coronary arteries. She does have a history of Takotsubo's. She has been chest pain free throughout. - Monitor on telemetry - Troponin elevated to 0.839 overnight - Echocardiogram shows some areas of akinesis - Cardiology (Dr. Robison) following who will perform angiography tomorrow for further evaluation - NPO after midnight 3. CHRISTA opacities - Noted on CT in the setting of mild shortness of breath. She denies cough or fever and she is not hypoxic. I feel pneumonia is possible but not certain. - S/p CTX/Azithro in the ED - Blood cultures ordered - Will hold off on further antibiotics, restart if infectious symptoms arise - Procalcitonin negative on admission 4. Asthma - Mild, intermittent; treated with albuterol PRN only as outpatient. She does not have signs of acute exacerbation at this time. - Albuterol PRN Diet - Clears, ADAT, NPO after midnight Code - Full Ppx - LMWH Dispo - Pending clinical course, [facility] tomorrow Subjective: Patient reports no chest pain this AM, tolerating diet Objective: Vital Signs Temp Pulse Resp BP Pulse Ox 37.2 C 83 14 85/56 L 92 06/30/18 11:40 06/30/18 11:40 06/30/18 11:40 06/30/18 11:40 06/30/18 11:40 Laboratory Results 06/30/18 11:20 06/30/18 11:20 06/29/18 06/30/18 07/01/18 05:59 05:59 06:59 Intake Total 1750 Balance 1750 PT 12.8 SEC (12.0-15.0) 06/30/18 11:20 INR 1.00 (0.83-1.16) 06/30/18 11:20 - Physical Exam Constitutional: no apparent distress Eyes: PERRL Ears, Nose, Mouth, Throat: moist mucous membranes Cardiovascular: regular rate and rhythym Respiratory: no respiratory distress Gastrointestinal: soft, non-tender abdomen Skin: warm Musculoskeletal: full muscle strength Neurologic: AAOx3 Psychiatric: interacting appropriately ICD10 Worksheet Patient Problems: Problems Problem Status Onset Abdominal pain Acute Abnormal EKG Acute Dehydration Acute Elevated troponin Acute Nausea & vomiting Acute
[2018-06-30] MEDS: CITALOPRAM 20 MG TAB PO SCH (16:00)
[2018-06-30] MEDS: ONDANSETRON DISINTEGRATING 4 MG TAB PO PRN ×2 (16:51→23:24)
[2018-06-30] MEDS: ACYCLOVIR 400 MG TAB PO SCH (20:30)
[2018-06-30] MEDS: buPROPion SR 150 MG TAB PO SCH (20:31)
[2018-06-30] MEDS: ACETAMINOPHEN 325 MG TAB PO PRN (23:25)
[2018-07-01] MEDS: ENOXAPARIN 40 MG/0.4 ML SYR SC SCH (09:51)
[2018-07-01] MEDS: ASPIRIN 81 MG CHEWABLE TAB PO SCH (09:51)
[2018-07-01] MEDS: buPROPion SR 150 MG TAB PO SCH ×2 (09:51→20:52)
[2018-07-01] MEDS: ACYCLOVIR 400 MG TAB PO SCH ×2 (09:51→20:53)
[2018-07-01] MEDS: ROTIGOTINE TD SCH (09:55)
[2018-07-01] MEDS ORDERED: DIAZEPAM 5 MG TAB PO ONE ×2 (11:00)
[2018-07-01] MEDS ORDERED: FAMOTIDINE 20 MG TAB PO ONE (11:00)
[2018-07-01] MEDS ORDERED: VERAPAMIL 5 MG/2 ML VIAL ONE (11:12)
[2018-07-01] MEDS ORDERED: MIDAZOLAM 2 MG/2 ML VIAL ONE ×2 (11:12)
[2018-07-01] MEDS ORDERED: HEPARIN 10,000 UNIT/10 ML MDV (1,000 UNIT/ML) ONE (11:12)
[2018-07-01] MEDS ORDERED: LIDOCAINE 1% 300 MG/30 ML SDV ONE (11:12)
[2018-07-01] MEDS ORDERED: fentaNYL 100 MCG/2 ML INJ ONE (11:12)
[2018-07-01] MEDS: oxyCODONE IR 5 MG TAB PO PRN ×3 (11:12→20:52)
[2018-07-01] MEDS ORDERED: IOPAMIDOL (ISOVUE-370) 150 ML BTL IV ONE (11:13)
--- NOTE | 2018-07-01 12:05 | PDPROPOC ---
Sedation Plan of Care Sedation Plan of Care: vital signs stable, mental status noted, patient educated of risks, benefits, alternatives, patient can tolerate sedation ASA Classification: ASA 2 Planned drugs: fentanyl, midazolam Mallampati Score: Class 2 Mallampati Reference Image: Patient passed 3-3-2 rule?: Yes
--- NOTE | 2018-07-01 12:05 | SOAPPROG ---
SOAP Progress Note Assessment/Plan: Assessment: Problem list: 1. Takotsubo's cardiomyopathy 2. Elevation in troponin associated with abnormal echocardiogram in regional wall motion abnormalities 3. Hypertension 4. Recent orthopedic surgery Procedures: Echocardiogram 06/30/2018 Left heart catheterization coronary ventricular angiography 07/01/2018. 06/30/18 10:57 Impression: Clinically improved since yesterday with less nausea vomiting. Troponin still mildly elevated. Echo does show regional wall motion abnormalities of uncertain significance. She has stable hemodynamics with good blood pressure and heart rate. Recommendations: Diagnostic coronary angiogram for tomorrow. Aggressive medical therapy for a cardiomyopathy with reduced LV systolic function. Continued observation on telemetry. 07/01/18 12:54 Impression: Takotsubo's cardiomyopathy has resolved. Mild persistent inferior hypokinetic segment on ventriculogram today associated with elevation in troponins. Coronary arteries remain normal. Left ventricular filling pressures are normal. No further cardiac evaluation at this point. Considerations for low-dose beta-mirta/PAM-inhibitor in the future. Subjective: Cardiac review of systems is negative for chest pain, shortness of breath, PND , orthopnea, palpitations, syncope, near syncope, edema. Objective: Vital Signs Temp Pulse Resp BP Pulse Ox 36.7 C 88 18 107/64 95 07/01/18 11:41 07/01/18 11:41 07/01/18 11:41 07/01/18 11:41 07/01/18 11:41 Laboratory Results 07/01/18 03:26 07/01/18 03:26 06/30/18 07/01/18 07/02/18 04:59 05:59 05:59 Intake Total Balance PT 12.8 SEC (12.0-15.0) 06/30/18 11:20 INR 1.00 (0.83-1.16) 06/30/18 11:20 Physical Exam - Physical Exam General Appearance: WD/WN, no apparent distress Respiratory: chest non-tender, lungs clear Cardiac/Chest: regular rate, rhythm, No edema, No gallop, No JVD Peripheral Pulses: 1+: femoral (R), femoral (L) Abdomen: normal bowel sounds, non-tender, soft Skin: warm/dry, No rash Lymphatic: no adenopathy Neuro/Psych: no motor/sensory deficits, No facial droop ICD10 Worksheet Patient Problems: Problems Problem Status Onset Abdominal pain Acute Abnormal EKG Acute Dehydration Acute Elevated troponin Acute Nausea & vomiting Acute
--- NOTE | 2018-07-01 12:54 | PDDXCAT ---
Diagnostic Cath Note - . Date: 07/01/18 Estate Planner: Ricki Indication: other (elevated troponin with regional WMA) - Procedure Access: right wrist Procedure: left heart catheterization, coronary angiography, left ventriculogram - Materials Left Heart Cath size: 4F Left Heart Cath materials: standard multipack (JL4, JR4, pigtail) - Findings-Left Heart Catheterization LM: Large unobstructed LAD: Unobstructed, tortuous LCX: Dominant: Unobstructed RCA: Non dominant: Unobstructed EDP: 18 mm of mercury LVEF: 50% Wall motion: Inferior hypokinesis Complications: None Estimated blood loss: <50ml Closure method: TR Band Assessment: Normal coronary arteries. Preserved left ventricular systolic function with a mild inferior regional wall motion abnormality. Takotsubo's cardiomyopathy has resolved. Plan: Clinical follow-up Patient Problems: Problems Problem Status Onset Abdominal pain Acute Elevated troponin Acute Nausea & vomiting Acute Dehydration Acute Abnormal EKG Acute
--- NOTE | 2018-07-01 13:19 | PDMN ---
Medical Necessity Medical necessity: [facility] General Admission: 58 yo presents w/ n/v and SOB. Eval reveals abnormal EKG and indeterminate troponin. Initially admit to OBS for workup/tx, but changed to IP same day as pt will require at least 2MN to address multiple medical issues found: further dx testing shows possible SBO. Cardiology consult and angiography to f/u on abn EKG for further eval and noted elevated troponin overnight. Imaging shows also possible PNA. BC pending. Hx Takotsubo's CM, asthma, fibromyalgia, pancreatitis, IBS. Change to IP status 06/30/18@1432 per MD order
--- NOTE | 2018-07-01 15:24 | HOSPPROG ---
Hospitalist Progress Note Assessment/Plan: 58 yo F w/ hx of Takotsubo's CM presents with nausea and vomiting, found to have abnormal ECG and indeterminate troponin. 1. Nausea, vomiting - Unclear etiology; present for 2 days. - Anti-emetics PRN - Tolerating cardiac diet - GI PCR if diarrhea develops - CT addendum notes suspicion for jejunal pneumatosis intestinalis raising possibility for partial or early SBO, potentially related to adhesion or internal hernia vs incidental finding - Patient tolerating PO, passing gas, and having BM, will continue current management if s/s of SBO arise will make NPO, make NGT if needed, consider surgical consult 2. Elevated troponin - Troponin 0.21 on admission; ECG w/ ST depression's in II , III, aVF, and V4. She had a cardiac cath in 2017 that revealed normal coronary arteries. She does have a history of Takotsubo's. She has been chest pain free throughout. - Monitor on telemetry - Troponin elevated to 0.839 overnight - Echocardiogram shows some areas of akinesis - Cardiology (Dr. Robison) performed LHC this AM with normal coronaries, no intervention performed 3. Inferior Wall Abnormality - Seen on TTE, LHC today with preserved LV systolic function with a mild inferior regional wall motion abnormality - Normal coronaries on LHC as above - Consider starting B-Bryson/ACEi per Dr. Robison, will start Coreg 3.125 BID this evening - Patient appears euvolemic 3. CHRISTA opacities - Noted on CT in the setting of mild shortness of breath. She denies cough or fever and she is not hypoxic. I feel pneumonia is possible but not certain. - S/p CTX/Azithro in the ED - Blood cultures ordered - Will hold off on further antibiotics, restart if infectious symptoms arise - Procalcitonin negative on admission 4. Asthma - Mild, intermittent; treated with albuterol PRN only as outpatient. She does not have signs of acute exacerbation at this time. - Albuterol PRN Diet - ADAT Code - Full Ppx - LMWH Dispo - Pending clinical course, likely d/c tomorrow if symptoms improved Subjective: Patient reports minimal nausea this morning Objective: Vital Signs Temp Pulse Resp BP Pulse Ox 36.8 C 80 12 88/56 L 94 07/01/18 13:55 07/01/18 14:56 07/01/18 14:56 07/01/18 14:56 07/01/18 14:56 Laboratory Results 07/01/18 03:26 07/01/18 03:26 06/30/18 07/01/18 07/02/18 04:59 05:59 05:59 Intake Total 1020 Balance 1020 PT 12.8 SEC (12.0-15.0) 06/30/18 11:20 INR 1.00 (0.83-1.16) 06/30/18 11:20 - Physical Exam Constitutional: no apparent distress Eyes: PERRL Ears, Nose, Mouth, Throat: moist mucous membranes Cardiovascular: regular rate and rhythym Respiratory: no respiratory distress Gastrointestinal: soft, non-tender abdomen Skin: warm Neurologic: AAOx3 Psychiatric: interacting appropriately ICD10 Worksheet Patient Problems: Problems Problem Status Onset Abdominal pain Acute Abnormal EKG Acute Dehydration Acute Elevated troponin Acute Nausea & vomiting Acute
[2018-07-01] MEDS: CITALOPRAM 20 MG TAB PO SCH (15:43)
[2018-07-01] MEDS: HYDROmorphONE/DILAUDID 1 MG/ML INJ IVP PRN ×2 (17:36→23:51)
[2018-07-01] MEDS: CARVEDILOL 3.125 MG TAB PO SCH (17:37)
[2018-07-02] MEDS: oxyCODONE IR 5 MG TAB PO PRN ×3 (02:04→09:58)
[2018-07-02] MEDS: ACETAMINOPHEN 325 MG TAB PO PRN (08:26)
[2018-07-02] MEDS: buPROPion SR 150 MG TAB PO SCH (08:27)
[2018-07-02] MEDS: ASPIRIN 81 MG CHEWABLE TAB PO SCH (08:27)
[2018-07-02] MEDS: ENOXAPARIN 40 MG/0.4 ML SYR SC SCH (08:27)
[2018-07-02] MEDS: ACYCLOVIR 400 MG TAB PO SCH (08:27)
[2018-07-02] MEDS: CARVEDILOL 3.125 MG TAB PO SCH (08:27)
[2018-07-02] MEDS: ROTIGOTINE TD SCH (08:28)
[2018-07-02 11:20] VITALS: BP 105/68
--- NOTE | 2018-07-02 12:18 | ASMTLACE ---
BRIGITTE Length of stay for Answers: 2 days current admission Acuity / Level of Answers: Yes Care: Did the patient have an inpatient admission? Comorbidities - select Answers: Other Notes: Tacotsubo cardiomyopath y all that apply # of Emergency department Answers: 1-2 visits in the last 6 months Social determinants Answers: Mental health diagnosis (anxiety, depression, pers onality disorders, etc.) Score: 10 Date Signed: 07/02/2018 12:18 PM Electronically Signed By:Angela Woodall RN
--- NOTE | 2018-07-02 16:00 | PDDCSUM ---
Discharge Summary Discharge Summary: Date of Admission: 06/30/2018 Date of Discharge: 07/02/2018 Consults: Cardiology Procedures: TTE, LHC Followup: PCP, Cardiology Hospital Course Problem List: 58 yo F w/ hx of Takotsubo's CM presents with nausea and vomiting, found to have abnormal ECG and indeterminate troponin. 1. Nausea, vomiting - Unclear etiology; present for 2 days. - Anti-emetics PRN - Tolerating cardiac diet - CT addendum notes suspicion for jejunal pneumatosis intestinalis raising possibility for partial or early SBO, potentially related to adhesion or internal hernia vs incidental finding - Patient tolerating PO, passing gas, and having BM upon discharge 2. Elevated troponin - Troponin 0.21 on admission; ECG w/ ST depression's in II , III, aVF, and V4. She had a cardiac cath in 2017 that revealed normal coronary arteries. She does have a history of Takotsubo's. She has been chest pain free throughout. - Monitor on telemetry - Troponin elevated to 0.839 - Echocardiogram shows some areas of akinesis - Cardiology (Dr. Robison) performed LHC on 07/01 with normal coronaries, no intervention performed 3. Inferior Wall Abnormality - Seen on TTE, LHC with preserved LV systolic function with a mild inferior regional wall motion abnormality - Normal coronaries on LHC as above - Consider starting B-Bryson/ACEi per Dr. Robison, started Coreg 3.125 BID upon discharge - Patient appears euvolemic 3. CHRISTA opacities - Noted on CT in the setting of mild shortness of breath. She denies cough or fever and she is not hypoxic. I feel pneumonia is possible but not certain. - S/p CTX/Azithro in the ED - Blood cultures ordered - Held off on further antibiotics - Procalcitonin negative on admission 4. Asthma - Mild, intermittent; treated with albuterol PRN only as outpatient. She does not have signs of acute exacerbation at this time. - Albuterol PRN Time spent on discharge was >30 minutes with >50% of time spent on patient education and counseling
== END 2018-07-02 13:07 | disposition home or self-care (01) | DRG 192 ==
LOC: INTOOBSV 06-30 00:26 → F2W 06-30 02:17 → OBSVTOIN 06-30 14:32
PROVIDERS: ADMIT Student in an Organized Health Care Education/Training Program; ATTEND Student in an Organized Health Care Education/Training Program
DX: I51.81 Takotsubo syndrome (principal); F41.9 Anxiety disorder, unspecified; R11.2 Nausea with vomiting, unspecified; R79.89 Other specified abnormal findings of blood chemistry; R00.9 Unspecified abnormalities of heart beat; R91.8 Other nonspecific abnormal finding of lung field; J45.909 Unspecified asthma, uncomplicated; M79.7 Fibromyalgia; G25.81 Restless legs syndrome; J44.9 Chronic obstructive pulmonary disease, unspecified; I10 Essential (primary) hypertension
CPT/HCPCS: 84484-ER; 96365; C1769; J0456; J0696; J1170; J1644; J1650; J2250; J2405; J3010; Q9967